=== PATIENT | male | born 1975 | race Caucasian/White ===

== ENCOUNTER 2016-09-24 16:43 | Emergency (ER) | payer BC, OTHER ==
[~2016-09-24 16:43] MED LIST: OMEP40CA2 PO; PARO-39 PO
[2016-09-24] MEDS ORDERED: MORPHINE 2 MG/ML 1ML SYRINGE As Ordered ONE (17:45)
[2016-09-24 18:03] LABS: BASO # 0.1 K/mm3 (0.0-0.2); BASO % 1.3 % (0.0-1.0); EOS # 0.3 K/mm3 (0.0-0.50); EOS % 3.7 % (0.0-3.0); LARGE UNSTAINED CELL # 0.2 K/mm3 (0.0-0.4); LARGE UNSTAINED CELL % 2.4 % (0.0-4.0); LYMPH # 2.4 K/mm3 (1.5-4.5); LYMPH % 32.3 % (24.0-44.0); MEAN CORPUSCULAR HEMOGLOBIN 29.8 pg (27.0-33.0); MEAN CORPUSCULAR VOLUME 87.7 fl (80.0-96.0); MONO # 0.4 K/mm3 (0.0-0.8); MONO % 5.5 % (0.0-5.0); NEUTROPHILS % 54.8 % (36.0-66.0); PLATELET COUNT, AUTOMATED 374 k/mm3 (150-450); RED CELL DISTRIBUTION WIDTH 12.8 % (11.5-14.5); WHITE BLOOD COUNT 7.3 K/mm3 (4.0-10.0)
--- NOTE | 2016-09-24 18:16 | REP ---
Clinical: Chest pain . Comparison: 01/14/2016 . Findings: The mediastinum and cardiac silhouette are stable and within normal limits for portable technique. The lung jean are clear without acute consolidation, effusion, or pneumothorax. Skeletal structures are intact. Impression: Normal portable chest x-ray Signed by Deniz Cobb MD 09/24/2016 06:07 P
[2016-09-24 18:35] LABS: ANION GAP 8 MEQ/L (8-16); BLOOD UREA NITROGEN 12 MG/DL (7-18); CALCIUM LEVEL 9.1 MG/DL (8.5-10.1); CARBON DIOXIDE LEVEL 28 MEQ/L (21-32); CHLORIDE LEVEL 105 MEQ/L (98-107); CREATININE FOR GFR 1.11 MG/DL (0.70-1.30); GLOMERULAR FILTRATION RATE > 60.0 (>60); GLUCOSE, FASTING 104 MG/DL (70-105); POTASSIUM SERUM 4.1 MEQ/L (3.5-5.1); SODIUM LEVEL 141 MEQ/L (136-145)
--- NOTE | 2016-09-24 22:36 | EDDOCDS ---
Physician Documentation [facility] Name: Ronan Hernandes Age: 41 yrs Sex: Male : 1975 Arrival Date: 09/24/2016 Time: 16:43 Bed 14 Private MD: Chris Disposition: 09/24/16 22:08 Discharged to Home/Self Care. Impression: Chest pain, unspecified. - Condition is Stable. - Discharge Instructions: Nonspecific Chest Pain. - Medication Reconciliation, Local Pharmacy Hours, Work Release Form - 1 day form. - Follow up: Chris; When: Call to arrange an appointment; Reason: Continuance of care. - Problem is new. - Symptoms have improved. Historical: - Allergies: Nubain; - Home Meds: 1. Paxil 20 mg Oral tab once daily 2. omeprazole 40 mg Oral cpDR once daily - PMHx: GERD; Hypertension; - PSHx: right shoulder surgery; - Social history: Smoking status: Patient states was never smoker of tobacco. No barriers to communication noted, The patient speaks fluent Maltese. - Family history: Not pertinent. - : The pt / caregiver states he / she is not on anticoagulants. Home medication list is obtained from the patient. - Exposure Risk Screening:: None identified. Vital Signs: 09/24 16:57 BP 138 / 76; Pulse 77; Resp 18; Pulse Ox 97% on R/A; Weight 92.99 kg / 205.01 lbs; mk4 Height 5 ft. 10 in. (177.80 cm); 17:02 BP 130 / 77 (auto/); ms18 17:03 Pulse 86 MON; Pulse Ox 97% ; ms18 17:07 Temp 97.1(O); mk4 17:17 BP 127 / 77 (auto/); ms18 17:18 Pulse 86 MON; Pulse Ox 96% ; ms18 17:32 BP 126 / 78 (auto/); ms18 17:33 Pulse 84 MON; Pulse Ox 97% ; ms18 17:47 BP 128 / 81 (auto/); ms18 17:48 Pulse 80 MON; Pulse Ox 98% ; ms18 18:02 BP 123 / 80 (auto/); ms18 18:03 Pulse 76 MON; Pulse Ox 97% ; ms18 18:16 Pulse 78 MON; Pulse Ox 96% ; ms18 18:17 BP 126 / 81 (auto/); ms18 18:32 BP 126 / 81 (auto/); ms18 18:32 Pulse 78 MON; Pulse Ox 97% ; ms18 18:47 BP 127 / 81 (auto/); ms18 18:48 Pulse 72 MON; Pulse Ox 98% ; ms18 19:02 BP 124 / 79 (auto/); ms18 19:03 Pulse 76 MON; Pulse Ox 97% ; ms18 19:17 BP 116 / 78 (auto/); ms18 19:18 Pulse 76 MON; Pulse Ox 96% ; ms18 19:32 BP 134 / 80 (auto/); ms18 19:32 Pulse 82 MON; Pulse Ox 96% ; ms18 19:46 Pulse 78 MON; Pulse Ox 96% ; ms18 19:47 BP 124 / 79 (auto/); ms18 20:02 BP 130 / 83 (auto/); ms18 20:02 Pulse 78 MON; Pulse Ox 96% ; ms18 20:17 Pulse 78 MON; Pulse Ox 97% ; ms18 20:17 BP 129 / 82 (auto/); ms18 20:31 Pulse 76 MON; Pulse Ox 96% ; ms18 20:32 BP 130 / 85 (auto/); ms18 20:46 Pulse 82 MON; Pulse Ox 95% ; ms18 20:47 BP 129 / 85 (auto/); ms18 20:47 Pulse 78 MON; Pulse Ox 96% ; ms18 21:01 Pulse 84 MON; Pulse Ox 98% ; ms18 21:02 BP 121 / 85 (auto/); ms18 21:16 Pulse 80 MON; Pulse Ox 97% ; ms18 21:17 BP 119 / 84 (auto/); ms18 21:32 BP 124 / 87 (auto/); ms18 21:32 Pulse 80 MON; Pulse Ox 96% ; ms18 21:45 Pulse 82 MON; Pulse Ox 96% ; ms18 21:47 BP 122 / 86 (auto/); ms18 22:02 BP 122 / 84 (auto/); ms18 22:02 Pulse 80 MON; Pulse Ox 94% ; ms18 22:17 BP 124 / 83 (auto/); ms18 22:17 Pulse 84 MON; Pulse Ox 96% ; ms18 22:18 Pulse 82 MON; Resp 18; Temp 98; Pulse Ox 96% ; Pain 0/10; ms18 16:57 Body Mass Index 29.41 (92.99 kg, 177.80 cm) mk4 MDM: 17:00 ECG WITH READING ER PHYS+CARDIAG ordered. EDMS 17:33 Aspirin Chewable Tablet 324 mg PO once ordered. fg 17:33 morphine 2 mg IVP once ordered. fg 17:33 Vessel Welder/Pulse Ox/q 30 min VS ordered. fg 17:33 IV Saline Lock ordered. fg 17:33 Rhythm Strip to chart ordered. fg 17:33 Undress patient appropriately for examination ordered. fg 17:34 ECG WITH READING ER PHYS+CARDIAG ordered. EDMS 17:35 B-Type Natiuretic Peptide Ordered. EDMS 17:35 Basic Metabolic Profile Ordered. EDMS 17:35 CBC with Diff Ordered. EDMS 17:35 Cardiac Injury Profile Ordered. EDMS 17:35 Troponin Ordered. EDMS 17:35 portable chest Ordered. EDMS 17:57 Financial registration complete. ks16 17:58 [facility] [place] was scanned into [email or web address] and attached to record. ks16 17:59 ECG WITH READING ER PHYS+CARDIAG ordered. EDMS 19:25 Repeat EKG (put time details section) ordered. fg 19:28 CARDIAC MARKER PANEL Ordered. EDMS 19:29 ECG WITH READING ER PHYS ordered. EDMS 19:31 Redraw CIP &Troponin (put time in details section) ordered. fg 19:38 Redraw CIP &Troponin (put time in details section) complete. ml3 19:41 Repeat EKG (put time details section) complete. ml3 Administered Medications: 17:54 Not Given (Pt states that he was given this at approx 1600 by his employer's [address]): Aspirin Chewable Tablet 324 mg PO once 17:55 Drug: morphine 2 mg [morphine 2 mg/mL intravenous cartridge (1 mL)] Route: IVP; Site: mb9 left antecubital; Signatures: Dispatcher [employer] EDMS Kyler Gonzalez, Cleaner Housekeeping Unit ml3 Chery Penn RN RN mk4 Wilda Leo RN RN ms18 Chayo Larkin MD MD fg Sorenson, Kimberly, Reg Reg ks16 Jeferson Gallegos RN mb9 The chart was reviewed and I authenticate all verbal orders and agree with the evaluation and treatment provided.Corrections: (The following items were deleted from the chart) 17:59 17:35 ECG WITH READING ER PHYS+CARDIAG ordered. EDMS EDMS 19: 19:26 CARDIAC INJURY PROFILE+LAB ordered. EDMS EDMS 19:26 TROPONIN+LAB ordered. EDMS EDMS Attachments: 17:58 [facility] Payment Agreement ks16 MTDD
--- NOTE | 2016-09-24 22:37 | EDDOCDS ---
Nurse's Notes [facility] Name: Ronan Hernandes Age: 41 yrs Sex: Male : 1975 Arrival Date: 09/24/2016 Time: 16:43 Bed 14 Private MD: Chris Diagnosis: Chest pain, unspecified Presentation: 09/24 16:52 Presenting complaint: Patient states: sudden onset of chest pain around 4 pm today mk4 ..has been spomewhat relieved by 3 nitros , pain now around 3/10 now , some tenderness left chest wall on palp , denies any recent illness. 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 by ems. Adult Sepsis Screening: The patient does not have new or worsening altered mentation. Patient's respiratory rate is less than 22. Systolic blood pressure is greater than 100. Patient has a qSOFA score of 0- Negative Sepsis Screen. Suicide/Homicide risk assessment- the patient denies having any suicidal and/or homicidal ideations and does not present with any other emotional, behavioral or mental health complaints. Status: Patient is not a customer service clerk or dependent. Transition of care: patient was not received from another setting of care. 16:52 Acuity: SCAR Level 3 mk4 16:52 Method Of Arrival: Ambulance mk4 Triage Assessment: 16:57 General: Appears in no apparent distress. Pain: Location: anterior aspect of left upper mk4 chest, mid-sternal area, left nipple and left breast Pain currently is 3 out of 10 on a pain scale. HIV screening NA for this visit Offered previously. Cardiovascular: Chest pain is described as Pain is 3 out of 10 on a pain scale. radiates Does not radiate. episodes are intermittent began 2 hours prior to arrival. Historical: - Allergies: Nubain; - Home Meds: 1. Paxil 20 mg Oral tab once daily 2. omeprazole 40 mg Oral cpDR once daily - PMHx: GERD; Hypertension; - PSHx: right shoulder surgery; - Social history: Smoking status: Patient states was never smoker of tobacco. No barriers to communication noted, The patient speaks fluent Colombian. - Family history: Not pertinent. - : The pt / caregiver states he / she is not on anticoagulants. Home medication list is obtained from the patient. - Exposure Risk Screening:: None identified. Screenin:03 Advance Directives: There is no living will. ms18 17:12 Screening information is obtained from the patient. Fall risk: No risks identified. mk4 Assistance ADL's: requires no assistance with activities of daily living. Abuse/DV Screen: The patient / caregiver reports he/she is: not in a situation that causes fear, pain or injury. Nutritional screening: No deficits noted. home support is adequate. Assessment: 17:07 General: Appears in no apparent distress, comfortable. Pain: Location: left breast and mk4 mid-sternal area Pain currently is 4 out of 10 on a pain scale. Cardiovascular: Rhythm is regular. 17:12 Neurological: Level of Consciousness is awake, alert, Oriented to person, place, time. mk4 Respiratory: No deficits noted. Airway is patent Respiratory effort is even, unlabored, Respiratory pattern is regular, Breath sounds are clear bilaterally. Derm: Skin is intact, Skin is dry, Skin is pink, warm & dry. 17:54 General: Appears in no apparent distress, comfortable, Behavior is appropriate for age, ms18 cooperative. Pain: Pain currently is 4 out of 10 on a pain scale. Neurological: No deficits noted. Cardiovascular: Rhythm is regular. Respiratory: Airway is patent Respiratory effort is even, unlabored. GI: Abdomen is non- distended. Derm: Skin is pink, warm & dry. 18:28 General: Pt resting on the stretcher at this time. Will continue to monitor pt. ms18 19:43 General: Appears in no apparent distress, comfortable, Behavior is appropriate for age, ms18 cooperative, pleasant. General: Pt informed that the doctor wants repeat lab work and an EKG at approx 2100. Pt verbalized understanding, lights dimmed, pt states that he is feeling better. Pain: Denies pain. Neurological: No deficits noted. Cardiovascular: Rhythm is regular. Respiratory: No deficits noted. Derm: Skin is pink, warm & dry. 20:34 General: Appears in no apparent distress, comfortable, Behavior is appropriate for age, ms18 cooperative, Will redraw pt's labs at 2100. Respiratory: No deficits noted. Derm: Skin is pink, warm & dry. 21:30 General: Pt in no acute distress. Will continue to monitor pt. ms18 22:31 General: Appears in no apparent distress, comfortable, Behavior is appropriate for age, ms18 cooperative, pleasant. Pain: Denies pain. Neurological: No deficits noted. Cardiovascular: Rhythm is sinus rhythm. Respiratory: No deficits noted. Derm: Skin is intact, Skin is pink, warm & dry. Vital Signs: 16:57 BP 138 / 76; Pulse 77; Resp 18; Pulse Ox 97% on R/A; Weight 92.99 kg; Height 5 ft. 10 mk4 in. (177.80 cm); 17:02 BP 130 / 77 (auto/); ms18 17:03 Pulse 86 MON; Pulse Ox 97% ; ms18 17:07 Temp 97.1(O); mk4 17:17 BP 127 / 77 (auto/); ms18 17:18 Pulse 86 MON; Pulse Ox 96% ; ms18 17:32 BP 126 / 78 (auto/); ms18 17:33 Pulse 84 MON; Pulse Ox 97% ; ms18 17:47 BP 128 / 81 (auto/); ms18 17:48 Pulse 80 MON; Pulse Ox 98% ; ms18 18:02 BP 123 / 80 (auto/); ms18 18:03 Pulse 76 MON; Pulse Ox 97% ; ms18 18:16 Pulse 78 MON; Pulse Ox 96% ; ms18 18:17 BP 126 / 81 (auto/); ms18 18:32 BP 126 / 81 (auto/); ms18 18:32 Pulse 78 MON; Pulse Ox 97% ; ms18 18:47 BP 127 / 81 (auto/); ms18 18:48 Pulse 72 MON; Pulse Ox 98% ; ms18 19:02 BP 124 / 79 (auto/); ms18 19:03 Pulse 76 MON; Pulse Ox 97% ; ms18 19:17 BP 116 / 78 (auto/); ms18 19:18 Pulse 76 MON; Pulse Ox 96% ; ms18 19:32 BP 134 / 80 (auto/); ms18 19:32 Pulse 82 MON; Pulse Ox 96% ; ms18 19:46 Pulse 78 MON; Pulse Ox 96% ; ms18 19:47 BP 124 / 79 (auto/); ms18 20:02 BP 130 / 83 (auto/); ms18 20:02 Pulse 78 MON; Pulse Ox 96% ; ms18 20:17 Pulse 78 MON; Pulse Ox 97% ; ms18 20:17 BP 129 / 82 (auto/); ms18 20:31 Pulse 76 MON; Pulse Ox 96% ; ms18 20:32 BP 130 / 85 (auto/); ms18 20:46 Pulse 82 MON; Pulse Ox 95% ; ms18 20:47 BP 129 / 85 (auto/); ms18 20:47 Pulse 78 MON; Pulse Ox 96% ; ms18 21:01 Pulse 84 MON; Pulse Ox 98% ; ms18 21:02 BP 121 / 85 (auto/); ms18 21:16 Pulse 80 MON; Pulse Ox 97% ; ms18 21:17 BP 119 / 84 (auto/); ms18 21:32 BP 124 / 87 (auto/); ms18 21:32 Pulse 80 MON; Pulse Ox 96% ; ms18 21:45 Pulse 82 MON; Pulse Ox 96% ; ms18 21:47 BP 122 / 86 (auto/); ms18 22:02 BP 122 / 84 (auto/); ms18 22:02 Pulse 80 MON; Pulse Ox 94% ; ms18 22:17 BP 124 / 83 (auto/); ms18 22:17 Pulse 84 MON; Pulse Ox 96% ; ms18 22:18 Pulse 82 MON; Resp 18; Temp 98; Pulse Ox 96% ; Pain 0/10; ms18 16:57 Body Mass Index 29.41 (92.99 kg, 177.80 cm) mk4 Vitals: 16:57 Log In Time N/A - ambulance arrival. mk4 ED Course: 16:44 Patient visited by Ambar Sierra Corridor Redevelopment Manager. lbd 16:44 Patient moved to Waiting lbd 16:45 Chris is Private Physician. lbd 16:45 Wilda Leo,RN is Primary Nurse. mk4 16:45 Patient moved to 14 mk4 16:55 Triage Initiated mk4 17:03 Patient has correct armband on for positive identification. Placed in gown. Bed in low ms18 position. Call light in reach. Side rails up X2. Property :Personal belongings accompany Pt. 17:03 Maintain field IV. Dressing intact. Good blood return noted. Site clean & dry. Gauge & ms18 site: 20g L AC. 17:08 EKG done. (by ED staff). Reviewed by Xiang Whipple MD. nb2 17:12 The patient / caregiver is instructed regarding the plan of care and ED course. Cardiac mk4 monitor on. Pulse ox on. NIBP on. 17:21 Chayo Larkin MD is Attending Physician. fg 17:22 Patient visited by Chery Penn, NIRANJAN. mk4 17:35 Patient visited by Chayo Larkin MD. fg 17:52 B-Type Natiuretic Peptide Sent. ms18 17:52 Basic Metabolic Profile Sent. ms18 17:52 CBC with Diff Sent. ms18 17:52 Cardiac Injury Profile Sent. ms18 17:52 Troponin Sent. ms18 17:58 [facility] [place] was scanned into [employer] and attached to record. ks16 17:59 Patient visited by Nilsa Caballero. nb2 18:28 Patient visited by Wilda Leo,NIRANJAN. ms18 18:30 portable chest Returned. EDMS 19:28 Patient visited by Srikanth Quintana PCA. kb5 19:43 Patient visited by Wilda Leo RN. ms18 20:30 Patient visited by Wilda Leo RN. ms18 21:07 Patient visited by Wilda Leo RN. ms18 21:07 CARDIAC MARKER PANEL Sent. ms18 21:18 EKG done. (by ED staff). Reviewed by Chayo Larkin MD. kb5 21:19 Patient visited by Srikanth Quintana PCA. kb5 22:08 Chris is Referral Physician. fg 22:31 Patient visited by Wilda Leo RN. ms18 22:33 Discontinued IV lock intact, bleeding controlled, pressure dressing applied, No ms18 redness/swelling at site. No procedures done that require assistance. Administered Medications: 17:54 Not Given (Pt states that he was given this at approx 1600 by his employer's [address]): Aspirin Chewable Tablet 324 mg PO once 17:55 Drug: morphine 2 mg [morphine 2 mg/mL intravenous cartridge (1 mL)] Route: IVP; Site: mb9 left antecubital; Order Results: Lab Order: B-Type Natiuretic Peptide; SPEC'M 09/24/16 17:50 Test: BRAIN NATRIURETIC PEPTIDE; Value: < 5.0; Range: <100; Units: PG/ML; Status: F Lab Order: Basic Metabolic Profile; SPEC'M 09/24/16 17:50 Test: GLUCOSE, FASTING; Value: 104; Range: 70-105; Units: MG/DL; Status: F Test: BLOOD UREA NITROGEN; Value: 12; Range: 7-18; Units: MG/DL; Status: F Test: CREATININE FOR GFR; Value: 1.11; Range: 0.70-1.30; Units: MG/DL; Status: F Test: GLOMERULAR FILTRATION RATE; Value: > 60.0; Range: >60; Status: F Test: SODIUM LEVEL; Value: 141; Range: 136-145; Units: MEQ/L; Status: F Test: POTASSIUM SERUM; Value: 4.1; Range: 3.5-5.1; Units: MEQ/L; Status: F Test: CHLORIDE LEVEL; Value: 105; Range: 98-107; Units: MEQ/L; Status: F Test: CARBON DIOXIDE LEVEL; Value: 28; Range: 21-32; Units: MEQ/L; Status: F Test: ANION GAP; Value: 8; Range: 8-16; Units: MEQ/L; Status: F Test: CALCIUM LEVEL; Value: 9.1; Range: 8.5-10.1; Units: MG/DL; Status: F Test Note: ; Units are mL/min/1.73 m2 Chronic Kidney Disease Staging per NKF: Stage I & II GFR >=60 Normal to Mildly Decreased Stage III GFR 30-59 Moderately Decreased Stage IV GFR 15-29 Severely Decreased Stage V GFR <15 Very Little GFR Left ESRD GFR <15 on STOREROOM ATTENDANT Lab Order: CBC with Diff; SPEC'M 09/24/16 17:50 Test: WHITE BLOOD COUNT; Value: 7.3; Range: 4.0-10.0; Units: K/mm3; Status: F Test: RED BLOOD COUNT; Value: 4.80; Range: 4.30-6.10; Units: M/mm3; Status: F Test: HEMOGLOBIN; Value: 14.3; Range: 14.0-18.0; Units: g/dl; Status: F Test: HEMATOCRIT; Value: 42.0; Range: 42.0-52.0; Units: %; Status: F Test: MEAN CORPUSCULAR VOLUME; Value: 87.7; Range: 80.0-96.0; Units: fl; Status: F Test: MEAN CORPUSCULAR HEMOGLOBIN; Value: 29.8; Range: 27.0-33.0; Units: pg; Status: F Test: MEAN CORPUSCULAR HGB CONC; Value: 34.0; Range: 32.0-36.5; Units: g/dl; Status: F Test: RED CELL DISTRIBUTION WIDTH; Value: 12.8; Range: 11.5-14.5; Units: %; Status: F Test: PLATELET COUNT, AUTOMATED; Value: 374; Range: 150-450; Units: k/mm3; Status: F Test: NEUTROPHILS %; Value: 54.8; Range: 36.0-66.0; Units: %; Status: F Test: LYMPH %; Value: 32.3; Range: 24.0-44.0; Units: %; Status: F Test: MONO %; Value: 5.5; Range: 0.0-5.0; Abnormal: Above high normal; Units: %; Status: F Test: EOS %; Value: 3.7; Range: 0.0-3.0; Abnormal: Above high normal; Units: %; Status: F Test: BASO %; Value: 1.3; Range: 0.0-1.0; Abnormal: Above high normal; Units: %; Status: F Test: LARGE UNSTAINED CELL %; Value: 2.4; Range: 0.0-4.0; Units: %; Status: F Test: NEUTROPHILS #; Value: 4.0; Range: 1.8-7.7; Units: K/mm3; Status: F Test: LYMPH #; Value: 2.4; Range: 1.5-4.5; Units: K/mm3; Status: F Test: MONO #; Value: 0.4; Range: 0.0-0.8; Units: K/mm3; Status: F Test: EOS #; Value: 0.3; Range: 0.0-0.50; Units: K/mm3; Status: F Test: BASO #; Value: 0.1; Range: 0.0-0.2; Units: K/mm3; Status: F Test: LARGE UNSTAINED CELL #; Value: 0.2; Range: 0.0-0.4; Units: K/mm3; Status: F Lab Order: Cardiac Injury Profile; SPEC'M 09/24/16 17:50 Test: CPK CREATINE PHOSPHOKINASE; Value: 135; Range: 39-308; Units: U/L; Status: F Test: CK-MB VALUE MASS; Value: 1.8; Range: 0.0-3.6; Units: NG/ML; Status: F Test: MB/CK RELATIVE INDEX; Value: 1.33; Range: < OR =4; Status: F Test Note: ; DIAGNOSIS CRITERIA MMB ng/ml Relative Index (RI) NON-AMI < or = 5 N/A JOHN ZONE > 5 < or = 4 AMI > 5 > 4 Lab Order: Troponin; SPEC'M 09/24/16 17:50 Test: TROPONIN I; Value: < 0.02; Range: < 0.10; Units: NG/ML; Status: F Test Note: ; Troponin I Reference Interval for [facility] LOCI: 99th Percentile= 0.00-0.045 ng/ml Risk Stratification: <= 0.10 ng/ml Decreased Risk for Adverse Clinical Events. 0.10-1.50 ng/ml Increased Risk for Adverse Clinical Events. Evaluation of additional criterion and/or repeat testing in 2-6 hours is suggested to rule out myocardial damage. >= 1.50 ng/ml Indicative of Myocardial Injury. Lab Order: CARDIAC MARKER PANEL; SPEC'M 09/24/16 21:00 Test: CPK CREATINE PHOSPHOKINASE; Value: 114; Range: 39-308; Units: U/L; Status: F Test: CK-MB VALUE MASS; Value: 1.5; Range: 0.0-3.6; Units: NG/ML; Status: F Test: MB/CK RELATIVE INDEX; Value: 1.31; Range: < OR =4; Status: F Test: TROPONIN I; Value: < 0.02; Range: < 0.10; Units: NG/ML; Status: F Test Note: ; DIAGNOSIS CRITERIA MMB ng/ml Relative Index (RI) NON-AMI < or = 5 N/A JOHN ZONE > 5 < or = 4 AMI > 5 > 4 Radiology Order: portable chest Test: portable chest REASON FOR EXAMINATION: Chest Pain; Clinical: Chest pain .; ; Comparison: 01/14/2016 .; ; Findings:; The mediastinum and cardiac silhouette are stable and within normal limits for; portable technique. The lung jean are clear without acute consolidation,; effusion, or pneumothorax. Skeletal structures are intact.; ; Impression:; Normal portable chest x-ray; ; ; Signed by; Deniz Cobb MD 09/24/2016 06:07 P; Outcome: 22:08 Discharge ordered by Provider. fg 22:33 Discharge Assessment: Patient awake, alert and oriented x 3. No cognitive and/or ms18 functional deficits noted. Patient verbalized understanding of disposition instructions. patient administered narcotics - yes. Pt provided with safe discharge. The following High Risk Discharge criteria are identified: None. Discharged to home ambulatory, with significant other. Condition: good Condition: stable Condition: improved. Discharge instructions given to patient, Instructed on discharge instructions, follow up and referral plans. no driving heavy equipment, Demonstrated understanding of instructions, Pt was receptive of discharge instructions/ teaching. Work note provided to patient. No special radiology studies were completed. 22:34 Patient left the ED. ms18 Signatures: Dispatcher [employer] EDMS Ambar Sierra, Corridor Redevelopment Manager Unit lbd Srikanth Quintana, DISASTER RECOVERY COORDINATOR DISASTER RECOVERY COORDINATOR kb5 Chery Penn, RN RN [email or web address] Wilda Leo RN RN ms18 Jeferson Gallegos,NIRANJAN RN [id number] Chayo Larkin MD MD fg Sorenson, Kimberly, Reg Reg [id number] Nilsa Caballero2 TRINA
--- NOTE | 2016-09-25 08:47 | ECGEPIP ---
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
--- NOTE | 2016-09-25 08:49 | ECGEPIP ---
Stationary ECG Study [facility] - ED Test Date: 2016-09-24 Pat Name: JORGE CULVER Department: Room: - Gender: M Concrete Spreader: mignon : 1975 Requested By: MARIA G Velez Order Number: [id number] Reading MD: Xiang Whipple Measurements Intervals [place] Rate: 74 P: 27 MD: 184 QRS: 2 QRSD: 100 T: 9 QT: 385 QTc: 429 Interpretive Statements SINUS RHYTHM NSTTW ABNORMALITIES, EARLY REPOLARIZATION SIMILAR TO 09/24/16 Electronically Signed On 09-25-2016 8:49:04 EST by Xiang Whipple
--- NOTE | 2016-09-25 08:54 | ECGEPIP ---
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
--- NOTE | 2016-09-26 23:35 | EDDOCDS ---
Physician Documentation [facility] Name: Ronan Hernandes Age: 41 yrs Sex: Male : 1975 Arrival Date: 09/24/2016 Time: 16:43 Bed 14 Private MD: Chris Disposition: 09/24/16 22:08 Discharged to Home/Self Care. Impression: Chest pain, unspecified. - Condition is Stable. - Discharge Instructions: Nonspecific Chest Pain. - Medication Reconciliation, Local Pharmacy Hours, Work Release Form - 1 day form. - Follow up: Chris; When: Call to arrange an appointment; Reason: Continuance of care. - Problem is new. - Symptoms have improved. Historical: - Allergies: Nubain; - Home Meds: 1. Paxil 20 mg Oral tab once daily 2. omeprazole 40 mg Oral cpDR once daily - PMHx: GERD; Hypertension; - PSHx: right shoulder surgery; - Social history: Smoking status: Patient states was never smoker of tobacco. No barriers to communication noted, The patient speaks fluent Setswana. - Family history: Not pertinent. - : The pt / caregiver states he / she is not on anticoagulants. Home medication list is obtained from the patient. - Exposure Risk Screening:: None identified. Vital Signs: 09/24 16:57 BP 138 / 76; Pulse 77; Resp 18; Pulse Ox 97% on R/A; Weight 92.99 kg / 205.01 lbs; mk4 Height 5 ft. 10 in. (177.80 cm); 17:02 BP 130 / 77 (auto/); ms18 17:03 Pulse 86 MON; Pulse Ox 97% ; ms18 17:07 Temp 97.1(O); mk4 17:17 BP 127 / 77 (auto/); ms18 17:18 Pulse 86 MON; Pulse Ox 96% ; ms18 17:32 BP 126 / 78 (auto/); ms18 17:33 Pulse 84 MON; Pulse Ox 97% ; ms18 17:47 BP 128 / 81 (auto/); ms18 17:48 Pulse 80 MON; Pulse Ox 98% ; ms18 18:02 BP 123 / 80 (auto/); ms18 18:03 Pulse 76 MON; Pulse Ox 97% ; ms18 18:16 Pulse 78 MON; Pulse Ox 96% ; ms18 18:17 BP 126 / 81 (auto/); ms18 18:32 BP 126 / 81 (auto/); ms18 18:32 Pulse 78 MON; Pulse Ox 97% ; ms18 18:47 BP 127 / 81 (auto/); ms18 18:48 Pulse 72 MON; Pulse Ox 98% ; ms18 19:02 BP 124 / 79 (auto/); ms18 19:03 Pulse 76 MON; Pulse Ox 97% ; ms18 19:17 BP 116 / 78 (auto/); ms18 19:18 Pulse 76 MON; Pulse Ox 96% ; ms18 19:32 BP 134 / 80 (auto/); ms18 19:32 Pulse 82 MON; Pulse Ox 96% ; ms18 19:46 Pulse 78 MON; Pulse Ox 96% ; ms18 19:47 BP 124 / 79 (auto/); ms18 20:02 BP 130 / 83 (auto/); ms18 20:02 Pulse 78 MON; Pulse Ox 96% ; ms18 20:17 Pulse 78 MON; Pulse Ox 97% ; ms18 20:17 BP 129 / 82 (auto/); ms18 20:31 Pulse 76 MON; Pulse Ox 96% ; ms18 20:32 BP 130 / 85 (auto/); ms18 20:46 Pulse 82 MON; Pulse Ox 95% ; ms18 20:47 BP 129 / 85 (auto/); ms18 20:47 Pulse 78 MON; Pulse Ox 96% ; ms18 21:01 Pulse 84 MON; Pulse Ox 98% ; ms18 21:02 BP 121 / 85 (auto/); ms18 21:16 Pulse 80 MON; Pulse Ox 97% ; ms18 21:17 BP 119 / 84 (auto/); ms18 21:32 BP 124 / 87 (auto/); ms18 21:32 Pulse 80 MON; Pulse Ox 96% ; ms18 21:45 Pulse 82 MON; Pulse Ox 96% ; ms18 21:47 BP 122 / 86 (auto/); ms18 22:02 BP 122 / 84 (auto/); ms18 22:02 Pulse 80 MON; Pulse Ox 94% ; ms18 22:17 BP 124 / 83 (auto/); ms18 22:17 Pulse 84 MON; Pulse Ox 96% ; ms18 22:18 Pulse 82 MON; Resp 18; Temp 98; Pulse Ox 96% ; Pain 0/10; ms18 16:57 Body Mass Index 29.41 (92.99 kg, 177.80 cm) mk4 MDM: 17:00 ECG WITH READING ER PHYS+CARDIAG ordered. EDMS 17:33 Aspirin Chewable Tablet 324 mg PO once ordered. fg 17:33 morphine 2 mg IVP once ordered. fg 17:33 Wallpaper Installer/Pulse Ox/q 30 min VS ordered. fg 17:33 IV Saline Lock ordered. fg 17:33 Rhythm Strip to chart ordered. fg 17:33 Undress patient appropriately for examination ordered. fg 17:34 ECG WITH READING ER PHYS+CARDIAG ordered. EDMS 17:35 B-Type Natiuretic Peptide Ordered. EDMS 17:35 Basic Metabolic Profile Ordered. EDMS 17:35 CBC with Diff Ordered. EDMS 17:35 Cardiac Injury Profile Ordered. EDMS 17:35 Troponin Ordered. EDMS 17:35 portable chest Ordered. EDMS 17:57 Financial registration complete. [email or web address] 17:58 [facility] Payment Agreement was scanned into [employer] and attached to record. [email or web address] 17:59 ECG WITH READING ER PHYS+CARDIAG ordered. EDMS 19:25 Repeat EKG (put time details section) ordered. fg 19:28 CARDIAC MARKER PANEL Ordered. EDMS 19:29 ECG WITH READING ER PHYS ordered. EDMS 19:31 Redraw CIP &Troponin (put time in details section) ordered. fg 19:38 Redraw CIP &Troponin (put time in details section) complete. ml3 19:41 Repeat EKG (put time details section) complete. ml3 09/25 14:15 T-Sheet-- Draft Copy was scanned into [employer] and attached to record. gb 14:16 ECG/EKG was scanned into [employer] and attached to record. gb 14:16 Rhythm Strip was scanned into [employer] and attached to record. gb 14:17 PCR was scanned into [employer] and attached to record. gb Administered Medications: 09/24 17:54 Not Given (Pt states that he was given this at approx 1600 by his employer[employer] [address]): Aspirin Chewable Tablet 324 mg PO once 17:55 Drug: morphine 2 mg [morphine 2 mg/mL intravenous cartridge (1 mL)] Route: IVP; Site: mb9 left antecubital; Signatures: Dispatcher [employer] EDMS Humera Jansen, Reg Reg gb Kyler Gonzalez, Artillery Officer Unit ml3 Chery Penn, RN RN mk4 Wilda Leo,RN RN ms18 Chayo Larkin MD MD Kimberly Brown, Reg Reg ks16 Jeferson Gallegos RN mb9 The chart was reviewed and I authenticate all verbal orders and agree with the evaluation and treatment provided.Corrections: (The following items were deleted from the chart) 17:59 17:35 ECG WITH READING ER PHYS+CARDIAG ordered. EDMS EDMS 19:29 19:26 CARDIAC INJURY PROFILE+LAB ordered. EDMS EDMS 19:29 19:26 TROPONIN+LAB ordered. EDMS EDMS Attachments: 17:58 [facility] Payment Agreement [email or web address] 09/25 14:15 T-Sheet-- Draft Copy gb 14:16 ECG/EKG gb Chart Complete MTDD
--- NOTE | 2016-09-26 23:35 | EDDOCDS ---
Physician Documentation [facility] Name: Ronan Hernandes Age: 41 yrs Sex: Male : 1975 Arrival Date: 09/24/2016 Time: 16:43 Bed 14 Private MD: Chris Disposition: 09/24/16 22:08 Discharged to Home/Self Care. Impression: Chest pain, unspecified. - Condition is Stable. - Discharge Instructions: Nonspecific Chest Pain. - Medication Reconciliation, Local Pharmacy Hours, Work Release Form - 1 day form. - Follow up: Chris; When: Call to arrange an appointment; Reason: Continuance of care. - Problem is new. - Symptoms have improved. Historical: - Allergies: Nubain; - Home Meds: 1. Paxil 20 mg Oral tab once daily 2. omeprazole 40 mg Oral cpDR once daily - PMHx: GERD; Hypertension; - PSHx: right shoulder surgery; - Social history: Smoking status: Patient states was never smoker of tobacco. No barriers to communication noted, The patient speaks fluent Amharic. - Family history: Not pertinent. - : The pt / caregiver states he / she is not on anticoagulants. Home medication list is obtained from the patient. - Exposure Risk Screening:: None identified. Vital Signs: 09/24 16:57 BP 138 / 76; Pulse 77; Resp 18; Pulse Ox 97% on R/A; Weight 92.99 kg / 205.01 lbs; mk4 Height 5 ft. 10 in. (177.80 cm); 17:02 BP 130 / 77 (auto/); ms18 17:03 Pulse 86 MON; Pulse Ox 97% ; ms18 17:07 Temp 97.1(O); mk4 17:17 BP 127 / 77 (auto/); ms18 17:18 Pulse 86 MON; Pulse Ox 96% ; ms18 17:32 BP 126 / 78 (auto/); ms18 17:33 Pulse 84 MON; Pulse Ox 97% ; ms18 17:47 BP 128 / 81 (auto/); ms18 17:48 Pulse 80 MON; Pulse Ox 98% ; ms18 18:02 BP 123 / 80 (auto/); ms18 18:03 Pulse 76 MON; Pulse Ox 97% ; ms18 18:16 Pulse 78 MON; Pulse Ox 96% ; ms18 18:17 BP 126 / 81 (auto/); ms18 18:32 BP 126 / 81 (auto/); ms18 18:32 Pulse 78 MON; Pulse Ox 97% ; ms18 18:47 BP 127 / 81 (auto/); ms18 18:48 Pulse 72 MON; Pulse Ox 98% ; ms18 19:02 BP 124 / 79 (auto/); ms18 19:03 Pulse 76 MON; Pulse Ox 97% ; ms18 19:17 BP 116 / 78 (auto/); ms18 19:18 Pulse 76 MON; Pulse Ox 96% ; ms18 19:32 BP 134 / 80 (auto/); ms18 19:32 Pulse 82 MON; Pulse Ox 96% ; ms18 19:46 Pulse 78 MON; Pulse Ox 96% ; ms18 19:47 BP 124 / 79 (auto/); ms18 20:02 BP 130 / 83 (auto/); ms18 20:02 Pulse 78 MON; Pulse Ox 96% ; ms18 20:17 Pulse 78 MON; Pulse Ox 97% ; ms18 20:17 BP 129 / 82 (auto/); ms18 20:31 Pulse 76 MON; Pulse Ox 96% ; ms18 20:32 BP 130 / 85 (auto/); ms18 20:46 Pulse 82 MON; Pulse Ox 95% ; ms18 20:47 BP 129 / 85 (auto/); ms18 20:47 Pulse 78 MON; Pulse Ox 96% ; ms18 21:01 Pulse 84 MON; Pulse Ox 98% ; ms18 21:02 BP 121 / 85 (auto/); ms18 21:16 Pulse 80 MON; Pulse Ox 97% ; ms18 21:17 BP 119 / 84 (auto/); ms18 21:32 BP 124 / 87 (auto/); ms18 21:32 Pulse 80 MON; Pulse Ox 96% ; ms18 21:45 Pulse 82 MON; Pulse Ox 96% ; ms18 21:47 BP 122 / 86 (auto/); ms18 22:02 BP 122 / 84 (auto/); ms18 22:02 Pulse 80 MON; Pulse Ox 94% ; ms18 22:17 BP 124 / 83 (auto/); ms18 22:17 Pulse 84 MON; Pulse Ox 96% ; ms18 22:18 Pulse 82 MON; Resp 18; Temp 98; Pulse Ox 96% ; Pain 0/10; ms18 16:57 Body Mass Index 29.41 (92.99 kg, 177.80 cm) mk4 MDM: 17:00 ECG WITH READING ER PHYS+CARDIAG ordered. EDMS 17:33 Aspirin Chewable Tablet 324 mg PO once ordered. fg 17:33 morphine 2 mg IVP once ordered. fg 17:33 Parts Representative/Pulse Ox/q 30 min VS ordered. fg 17:33 IV Saline Lock ordered. fg 17:33 Rhythm Strip to chart ordered. fg 17:33 Undress patient appropriately for examination ordered. fg 17:34 ECG WITH READING ER PHYS+CARDIAG ordered. EDMS 17:35 B-Type Natiuretic Peptide Ordered. EDMS 17:35 Basic Metabolic Profile Ordered. EDMS 17:35 CBC with Diff Ordered. EDMS 17:35 Cardiac Injury Profile Ordered. EDMS 17:35 Troponin Ordered. EDMS 17:35 portable chest Ordered. EDMS 17:57 Financial registration complete. [email or web address] 17:58 [facility] [place] Agreement was scanned into [employer] and attached to record. [email or web address] 17:59 ECG WITH READING ER PHYS+CARDIAG ordered. EDMS 19:25 Repeat EKG (put time details section) ordered. fg 19:28 CARDIAC MARKER PANEL Ordered. EDMS 19:29 ECG WITH READING ER PHYS ordered. EDMS 19:31 Redraw CIP &Troponin (put time in details section) ordered. fg 19:38 Redraw CIP &Troponin (put time in details section) complete. ml3 19:41 Repeat EKG (put time details section) complete. ml3 09/25 14:15 T-Sheet-- Draft Copy was scanned into [employer] and attached to record. gb 14:16 ECG/EKG was scanned into [employer] and attached to record. gb 14:16 Rhythm Strip was scanned into [employer] and attached to record. gb 14:17 PCR was scanned into [employer] and attached to record. gb Administered Medications: 09/24 17:54 Not Given (Pt states that he was given this at approx 1600 by his employer's [address]): Aspirin Chewable Tablet 324 mg PO once 17:55 Drug: morphine 2 mg [morphine 2 mg/mL intravenous cartridge (1 mL)] Route: IVP; Site: mb9 left antecubital; Signatures: Dispatcher [employer] EDMS Humera Jansen, Reg Reg gb Kyler Gonzaelz, Animal Trapper Unit ml3 Chery Penn, RN RN mk4 Wilda Leo,RN RN ms18 Chayo Larkin MD MD Kimberly Brown, Reg Reg ks16 Jeferson Gallegos RN mb9 The chart was reviewed and I authenticate all verbal orders and agree with the evaluation and treatment provided.Corrections: (The following items were deleted from the chart) 17:59 17:35 ECG WITH READING ER PHYS+CARDIAG ordered. EDMS EDMS 19:29 19:26 CARDIAC INJURY PROFILE+LAB ordered. EDMS EDMS 19:29 19:26 TROPONIN+LAB ordered. EDMS EDMS Attachments: 17:58 [facility] [place] Agreement [email or web address] 09/25 14:15 T-Sheet-- Draft Copy gb 14:16 ECG/EKG gb Chart Complete MTDD
--- NOTE | 2016-09-26 23:35 | EDDOCDS ---
[facility] Name: Ronan Culver Age: 41 yrs Sex: Male : 1975 Arrival Date: 09/24/2016 Time: 16:43 Bed 14 Private MD: Chris Diagnosis: Chest pain, unspecified Presentation: 09/24 16:52 Presenting complaint: Patient states: sudden onset of chest pain around 4 pm today mk4 ..has been spomewhat relieved by 3 nitros , pain now around 3/10 now , some tenderness left chest wall on palp , denies any recent illness. 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 Adult Sepsis Screening: The patient does not have new or worsening altered mentation. Patient's respiratory rate is less than 22. Systolic blood pressure is greater than 100. Patient has a qSOFA score of 0- Negative Sepsis Screen. Suicide/Homicide risk assessment- the patient denies having any suicidal and/or homicidal ideations and does not present with any other emotional, behavioral or mental health complaints. Status: Patient is not a member services representative or dependent. Transition of care: patient was not received from another setting of care. 16:52 Acuity: SCAR Level 3 mk4 16:52 Method Of Arrival: Ambulance mk4 Triage Assessment: 16:57 General: Appears in no apparent distress. Pain: Location: anterior aspect of left upper mk4 chest, mid-sternal area, left nipple and left breast Pain currently is 3 out of 10 on a pain scale. HIV screening NA for this visit Offered previously. Cardiovascular: Chest pain is described as Pain is 3 out of 10 on a pain scale. radiates Does not radiate. episodes are intermittent began 2 hours prior to arrival. Historical: - Allergies: Nubain; - Home Meds: 1. Paxil 20 mg Oral tab once daily 2. omeprazole 40 mg Oral cpDR once daily - PMHx: GERD; Hypertension; - PSHx: right shoulder surgery; - Social history: Smoking status: Patient states was never smoker of tobacco. No barriers to communication noted, The patient speaks fluent Senegalese. - Family history: Not pertinent. - : The pt / caregiver states he / she is not on anticoagulants. Home medication list is obtained from the patient. - Exposure Risk Screening:: None identified. Screenin:03 Advance Directives: There is no living will. ms18 17:12 Screening information is obtained from the patient. Fall risk: No risks identified. mk4 Assistance ADL's: requires no assistance with activities of daily living. Abuse/DV Screen: The patient / caregiver reports he/she is: not in a situation that causes fear, pain or injury. Nutritional screening: No deficits noted. home support is adequate. Assessment: 17:07 General: Appears in no apparent distress, comfortable. Pain: Location: left breast and mk4 mid-sternal area Pain currently is 4 out of 10 on a pain scale. Cardiovascular: Rhythm is regular. 17:12 Neurological: Level of Consciousness is awake, alert, Oriented to person, place, time. mk4 Respiratory: No deficits noted. Airway is patent Respiratory effort is even, unlabored, Respiratory pattern is regular, Breath sounds are clear bilaterally. Derm: Skin is intact, Skin is dry, Skin is pink, warm & dry. 17:54 General: Appears in no apparent distress, comfortable, Behavior is appropriate for age, ms18 cooperative. Pain: Pain currently is 4 out of 10 on a pain scale. Neurological: No deficits noted. Cardiovascular: Rhythm is regular. Respiratory: Airway is patent Respiratory effort is even, unlabored. GI: Abdomen is non- distended. Derm: Skin is pink, warm & dry. 18:28 General: Pt resting on the stretcher at this time. Will continue to monitor pt. ms18 19:43 General: Appears in no apparent distress, comfortable, Behavior is appropriate for age, ms18 cooperative, pleasant. General: Pt informed that the doctor wants repeat lab work and an EKG at approx 2100. Pt verbalized understanding, lights dimmed, pt states that he is feeling better. Pain: Denies pain. Neurological: No deficits noted. Cardiovascular: Rhythm is regular. Respiratory: No deficits noted. Derm: Skin is pink, warm & dry. 20:34 General: Appears in no apparent distress, comfortable, Behavior is appropriate for age, ms18 cooperative, Will redraw pt's labs at 2100. Respiratory: No deficits noted. Derm: Skin is pink, warm & dry. 21:30 General: Pt in no acute distress. Will continue to monitor pt. ms18 22:31 General: Appears in no apparent distress, comfortable, Behavior is appropriate for age, ms18 cooperative, pleasant. Pain: Denies pain. Neurological: No deficits noted. Cardiovascular: Rhythm is sinus rhythm. Respiratory: No deficits noted. Derm: Skin is intact, Skin is pink, warm & dry. Vital Signs: 16:57 BP 138 / 76; Pulse 77; Resp 18; Pulse Ox 97% on R/A; Weight 92.99 kg; Height 5 ft. 10 mk4 in. (177.80 cm); 17:02 BP 130 / 77 (auto/); ms18 17:03 Pulse 86 MON; Pulse Ox 97% ; ms18 17:07 Temp 97.1(O); mk4 17:17 BP 127 / 77 (auto/); ms18 17:18 Pulse 86 MON; Pulse Ox 96% ; ms18 17:32 BP 126 / 78 (auto/); ms18 17:33 Pulse 84 MON; Pulse Ox 97% ; ms18 17:47 BP 128 / 81 (auto/); ms18 17:48 Pulse 80 MON; Pulse Ox 98% ; ms18 18:02 BP 123 / 80 (auto/); ms18 18:03 Pulse 76 MON; Pulse Ox 97% ; ms18 18:16 Pulse 78 MON; Pulse Ox 96% ; ms18 18:17 BP 126 / 81 (auto/); ms18 18:32 BP 126 / 81 (auto/); ms18 18:32 Pulse 78 MON; Pulse Ox 97% ; ms18 18:47 BP 127 / 81 (auto/); ms18 18:48 Pulse 72 MON; Pulse Ox 98% ; ms18 19:02 BP 124 / 79 (auto/); ms18 19:03 Pulse 76 MON; Pulse Ox 97% ; ms18 19:17 BP 116 / 78 (auto/); ms18 19:18 Pulse 76 MON; Pulse Ox 96% ; ms18 19:32 BP 134 / 80 (auto/); ms18 19:32 Pulse 82 MON; Pulse Ox 96% ; ms18 19:46 Pulse 78 MON; Pulse Ox 96% ; ms18 19:47 BP 124 / 79 (auto/); ms18 20:02 BP 130 / 83 (auto/); ms18 20:02 Pulse 78 MON; Pulse Ox 96% ; ms18 20:17 Pulse 78 MON; Pulse Ox 97% ; ms18 20:17 BP 129 / 82 (auto/); ms18 20:31 Pulse 76 MON; Pulse Ox 96% ; ms18 20:32 BP 130 / 85 (auto/); ms18 20:46 Pulse 82 MON; Pulse Ox 95% ; ms18 20:47 BP 129 / 85 (auto/); ms18 20:47 Pulse 78 MON; Pulse Ox 96% ; ms18 21:01 Pulse 84 MON; Pulse Ox 98% ; ms18 21:02 BP 121 / 85 (auto/); ms18 21:16 Pulse 80 MON; Pulse Ox 97% ; ms18 21:17 BP 119 / 84 (auto/); ms18 21:32 BP 124 / 87 (auto/); ms18 21:32 Pulse 80 MON; Pulse Ox 96% ; ms18 21:45 Pulse 82 MON; Pulse Ox 96% ; ms18 21:47 BP 122 / 86 (auto/); ms18 22:02 BP 122 / 84 (auto/); ms18 22:02 Pulse 80 MON; Pulse Ox 94% ; ms18 22:17 BP 124 / 83 (auto/); ms18 22:17 Pulse 84 MON; Pulse Ox 96% ; ms18 22:18 Pulse 82 MON; Resp 18; Temp 98; Pulse Ox 96% ; Pain 0/10; ms18 16:57 Body Mass Index 29.41 (92.99 kg, 177.80 cm) mk4 Vitals: 16:57 Log In Time N/A - ambulance arrival. mk4 ED Course: 16:44 Patient visited by Ambar Sierra Equity Director. lbd 16:44 Patient moved to Waiting lbd 16:45 Chris is Private Physician. lbd 16:45 Wilda Leo,RN is Primary Nurse. mk4 16:45 Patient moved to 14 mk4 16:55 Triage Initiated mk4 17:03 Patient has correct armband on for positive identification. Placed in gown. Bed in low ms18 position. Call light in reach. Side rails up X2. Property :Personal belongings accompany Pt. 17:03 Maintain field IV. Dressing intact. Good blood return noted. Site clean & dry. Gauge & ms18 site: 20g L AC. 17:08 EKG done. (by ED staff). Reviewed by Xiang Whipple MD. nb2 17:12 The patient / caregiver is instructed regarding the plan of care and ED course. Cardiac mk4 monitor on. Pulse ox on. NIBP on. 17:21 Chayo Larkin MD is Attending Physician. fg 17:22 Patient visited by Chery Penn, NIRANJAN. mk4 17:35 Patient visited by Chayo Larkin MD. fg 17:52 B-Type Natiuretic Peptide Sent. ms18 17:52 Basic Metabolic Profile Sent. ms18 17:52 CBC with Diff Sent. ms18 17:52 Cardiac Injury Profile Sent. ms18 17:52 Troponin Sent. ms18 17:58 [facility] Payment Agreement was scanned into [employer] and attached to record. ks16 17:59 Patient visited by Nilsa Caballero. nb2 18:28 Patient visited by Wilda Leo,NIRANJAN. ms18 18:30 portable chest Returned. EDMS 19:28 Patient visited by Srikanth Quintana PCA. kb5 19:43 Patient visited by Wilda Leo RN. ms18 20:30 Patient visited by Wilda Leo RN. ms18 21:07 Patient visited by Wilda Leo RN. ms18 21:07 CARDIAC MARKER PANEL Sent. ms18 21:18 EKG done. (by ED staff). Reviewed by Chayo Larkin MD. kb5 21:19 Patient visited by Srikanth Quintana PCA. kb5 22:08 Chris is Referral Physician. fg 22:31 Patient visited by Wilda Leo RN. ms18 22:33 Discontinued IV lock intact, bleeding controlled, pressure dressing applied, No ms18 redness/swelling at site. No procedures done that require assistance. 09/25 08:52 EKG-ADULT Returned. EDMS 08:52 EKG-ADULT Returned. EDMS 09:29 EKG-ADULT Returned. EDMS 14:15 T-Sheet-- Draft Copy was scanned into [employer] and attached to record. gb 14:16 ECG/EKG was scanned into [employer] and attached to record. gb 14:16 Rhythm Strip was scanned into [employer] and attached to record. gb 14:17 PCR was scanned into [employer] and attached to record. gb Administered Medications: 09/24 17:54 Not Given (Pt states that he was given this at approx 1600 by his employer's [address]): Aspirin Chewable Tablet 324 mg PO once 17:55 Drug: morphine 2 mg [morphine 2 mg/mL intravenous cartridge (1 mL)] Route: IVP; Site: mb9 left antecubital; Attachments: 14:16 Rhythm Strip gb Order Results: Lab Order: B-Type Natiuretic Peptide; SPEC'M 09/24/16 17:50 Test: BRAIN NATRIURETIC PEPTIDE; Value: < 5.0; Range: <100; Units: PG/ML; Status: F Lab Order: Basic Metabolic Profile; SPEC'M 09/24/16 17:50 Test: GLUCOSE, FASTING; Value: 104; Range: 70-105; Units: MG/DL; Status: F Test: BLOOD UREA NITROGEN; Value: 12; Range: 7-18; Units: MG/DL; Status: F Test: CREATININE FOR GFR; Value: 1.11; Range: 0.70-1.30; Units: MG/DL; Status: F Test: GLOMERULAR FILTRATION RATE; Value: > 60.0; Range: >60; Status: F Test: SODIUM LEVEL; Value: 141; Range: 136-145; Units: MEQ/L; Status: F Test: POTASSIUM SERUM; Value: 4.1; Range: 3.5-5.1; Units: MEQ/L; Status: F Test: CHLORIDE LEVEL; Value: 105; Range: 98-107; Units: MEQ/L; Status: F Test: CARBON DIOXIDE LEVEL; Value: 28; Range: 21-32; Units: MEQ/L; Status: F Test: ANION GAP; Value: 8; Range: 8-16; Units: MEQ/L; Status: F Test: CALCIUM LEVEL; Value: 9.1; Range: 8.5-10.1; Units: MG/DL; Status: F Test Note: ; Units are mL/min/1.73 m2 Chronic Kidney Disease Staging per NKF: Stage I & II GFR >=60 Normal to Mildly Decreased Stage III GFR 30-59 Moderately Decreased Stage IV GFR 15-29 Severely Decreased Stage V GFR <15 Very Little GFR Left ESRD GFR <15 on DIRECTOR SECURITY RISK MANAGEMENT Lab Order: CBC with Diff; SPEC'M 09/24/16 17:50 Test: WHITE BLOOD COUNT; Value: 7.3; Range: 4.0-10.0; Units: K/mm3; Status: F Test: RED BLOOD COUNT; Value: 4.80; Range: 4.30-6.10; Units: M/mm3; Status: F Test: HEMOGLOBIN; Value: 14.3; Range: 14.0-18.0; Units: g/dl; Status: F Test: HEMATOCRIT; Value: 42.0; Range: 42.0-52.0; Units: %; Status: F Test: MEAN CORPUSCULAR VOLUME; Value: 87.7; Range: 80.0-96.0; Units: fl; Status: F Test: MEAN CORPUSCULAR HEMOGLOBIN; Value: 29.8; Range: 27.0-33.0; Units: pg; Status: F Test: MEAN CORPUSCULAR HGB CONC; Value: 34.0; Range: 32.0-36.5; Units: g/dl; Status: F Test: RED CELL DISTRIBUTION WIDTH; Value: 12.8; Range: 11.5-14.5; Units: %; Status: F Test: PLATELET COUNT, AUTOMATED; Value: 374; Range: 150-450; Units: k/mm3; Status: F Test: NEUTROPHILS %; Value: 54.8; Range: 36.0-66.0; Units: %; Status: F Test: LYMPH %; Value: 32.3; Range: 24.0-44.0; Units: %; Status: F Test: MONO %; Value: 5.5; Range: 0.0-5.0; Abnormal: Above high normal; Units: %; Status: F Test: EOS %; Value: 3.7; Range: 0.0-3.0; Abnormal: Above high normal; Units: %; Status: F Test: BASO %; Value: 1.3; Range: 0.0-1.0; Abnormal: Above high normal; Units: %; Status: F Test: LARGE UNSTAINED CELL %; Value: 2.4; Range: 0.0-4.0; Units: %; Status: F Test: NEUTROPHILS #; Value: 4.0; Range: 1.8-7.7; Units: K/mm3; Status: F Test: LYMPH #; Value: 2.4; Range: 1.5-4.5; Units: K/mm3; Status: F Test: MONO #; Value: 0.4; Range: 0.0-0.8; Units: K/mm3; Status: F Test: EOS #; Value: 0.3; Range: 0.0-0.50; Units: K/mm3; Status: F Test: BASO #; Value: 0.1; Range: 0.0-0.2; Units: K/mm3; Status: F Test: LARGE UNSTAINED CELL #; Value: 0.2; Range: 0.0-0.4; Units: K/mm3; Status: F Lab Order: Cardiac Injury Profile; [facility] 09/24/16 17:50 Test: CPK CREATINE PHOSPHOKINASE; Value: 135; Range: 39-308; Units: U/L; Status: F Test: CK-MB VALUE MASS; Value: 1.8; Range: 0.0-3.6; Units: NG/ML; Status: F Test: MB/CK RELATIVE INDEX; Value: 1.33; Range: < OR =4; Status: F Test Note: ; DIAGNOSIS CRITERIA MMB ng/ml Relative Index (RI) NON-AMI < or = 5 N/A JOHN ZONE > 5 < or = 4 AMI > 5 > 4 Lab Order: Troponin; [facility] 09/24/16 17:50 Test: TROPONIN I; Value: < 0.02; Range: < 0.10; Units: NG/ML; Status: F Test Note: ; Troponin I Reference Interval for [employer] LOCI: 99th Percentile= 0.00-0.045 ng/ml Risk Stratification: <= 0.10 ng/ml Decreased Risk for Adverse Clinical Events. 0.10-1.50 ng/ml Increased Risk for Adverse Clinical Events. Evaluation of additional criterion and/or repeat testing in 2-6 hours is suggested to rule out myocardial damage. >= 1.50 ng/ml Indicative of Myocardial Injury. Lab Order: CARDIAC MARKER PANEL; [facility] 09/24/16 21:00 Test: CPK CREATINE PHOSPHOKINASE; Value: 114; Range: 39-308; Units: U/L; Status: F Test: CK-MB VALUE MASS; Value: 1.5; Range: 0.0-3.6; Units: NG/ML; Status: F Test: MB/CK RELATIVE INDEX; Value: 1.31; Range: < OR =4; Status: F Test: TROPONIN I; Value: < 0.02; Range: < 0.10; Units: NG/ML; Status: F Test Note: ; DIAGNOSIS CRITERIA MMB ng/ml Relative Index (RI) NON-AMI < or = 5 N/A JOHN ZONE > 5 < or = 4 AMI > 5 > 4 Radiology Order: EKG-ADULT Test: EKG-ADULT REASON FOR EXAMINATION: Chest Pain; Stationary ECG Study; 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; : 1975 Requested By: CHAYO Velez; Order Number: [id number] Reading : Xiang Whipple; Measurements; Intervals [place]; Rate: 74 P: 27; NM: 184 QRS: 2; QRSD: 100 T: 9; QT: 385; QTc: 429; Interpretive Statements; SINUS RHYTHM; NSTTW ABNORMALITIES, EARLY REPOLARIZATION; SIMILAR TO 09/24/16; Electronically Signed On 09-25-2016 8:49:04 EST by Xiang Whipple; Radiology Order: portable chest Test: portable chest REASON FOR EXAMINATION: Chest Pain; Clinical: Chest pain .; ; Comparison: 01/14/2016 .; ; Findings:; The mediastinum and cardiac silhouette are stable and within normal limits for; portable technique. The lung jean are clear without acute consolidation,; effusion, or pneumothorax. Skeletal structures are intact.; ; Impression:; Normal portable chest x-ray; ; ; Signed by; Deniz Cobb MD 09/24/2016 06:07 P; Radiology Order: EKG-ADULT Test: EKG-ADULT REASON FOR EXAMINATION: repeat now. 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 fg 22:33 Discharge Assessment: Patient awake, alert and oriented x 3. No cognitive and/or ms18 functional deficits noted. Patient verbalized understanding of disposition instructions. patient administered narcotics - yes. Pt provided with safe discharge. The following High Risk Discharge criteria are identified: None. Discharged to home ambulatory, with significant other. Condition: good Condition: stable Condition: improved. Discharge instructions given to patient, Instructed on discharge instructions, follow up and referral plans. no driving heavy equipment, Demonstrated understanding of instructions, Pt was receptive of discharge instructions/ teaching. Work note provided to patient. No special radiology studies were completed. 22:34 Patient left the ED. ms18 Signatures: Dispatcher [employer] EDMS Ambar Sierra, Equity Director Unit lbd Humera Jansen, Reg Reg gb Lilian, Srikanth, IT QUALITY ASSURANCE ANALYST IT QUALITY ASSURANCE ANALYST kb5 Chery Penn, RN RN mk4 Wilda Leo,NIRANJAN RN ms18 Jeferson Gallegos,RN RN mb9 Chayo Larkin MD MD fg Sorenson, Kimberly, Reg Reg ks16 Nilsa Caballero2 Chart Complete MTDD
== END 2016-09-24 22:34 | disposition home or self-care (01) ==
LOC: M ED 16:43
DX: R07.9 Chest pain, unspecified (principal); I10 Essential (primary) hypertension; K21.9 Gastro-esophageal reflux disease without esophagitis; F32.9 Major depressive disorder, single episode, unspecified; F41.9 Anxiety disorder, unspecified; Z88.5 Allergy status to narcotic agent; Z79.899 Other long term (current) drug therapy; Z82.49 Family history of ischemic heart disease and other diseases of the circulatory system

== ENCOUNTER → 2016-09-25 | Outpatient (REF) | payer BC, OTHER | LOC: M LAB REF 14:52 | PROVIDERS: ATTEND Nurse Practitioner Family | DX: R07.9 Chest pain, unspecified (principal) ==

== ENCOUNTER → 2017-05-12 | Outpatient (CLI) | payer BC, OTHER ==
[~2017-05-12] MED LIST changes: -PARO-39 PO; +PARO20TA4 PO
--- NOTE | 2017-05-12 10:12 | REP ---
Cervical spine seven views: Vertebral body heights, interspacing alignment are normal C1-C7. Kilos obscured by the shoulders. There is no listhesis on flexion or extension. The facets are normally aligned. Prevertebral soft tissues are normal. The odontoid view is unremarkable. There is no bony foraminal encroachment. Impression: Negative cervical spine C1-C7. I recommend the patient return for additional views demonstrating T1. If this is not possible consider CT. Signed by Rodney Patrick MD 05/12/2017 10:03 A
--- NOTE | 2017-05-12 10:15 | REP ---
Left shoulder four views : There is no fracture or dislocation. Mineralization and joint spaces are normal. There are no calcifications or foreign bodies. Impression: Negative left shoulder . Signed by Rodney Patrick MD 05/12/2017 10:06 A
== END ==
LOC: M WUC 09:03
PROVIDERS: ATTEND Physician Assistant
DX: M25.512 Pain in left shoulder (principal)

== ENCOUNTER 2018-05-02 09:36 | Emergency (ER) | payer OTHER, BC | END 2018-05-02 10:11 | disposition home or self-care (01) | LOC: M ED 09:36 | DX: M77.02 Medial epicondylitis, left elbow (principal); I10 Essential (primary) hypertension; K21.9 Gastro-esophageal reflux disease without esophagitis; I25.2 Old myocardial infarction; Z79.899 Other long term (current) drug therapy; Z88.8 Allergy status to other drugs, medicaments and biological substances | CPT/HCPCS: 99282 ==

== ENCOUNTER → 2019-12-17 | Outpatient (CLI) | payer OTHER, BC ==
[~2019-12-17] MED LIST changes: +ALEV220C2 PO; +AMLO2.5T3; +DICL75TA PO; -OMEP40CA2 PO; +OMEP40CA97 PO; +SERT50TA29; +VITA50005; +[UNRECOGNIZED DRUG - CODE] XX
[2019-12-17 17:12] LABS: BASO # 0.1 10^3/uL (0.0-0.2); BASO % 1.3 % (0.0-1.0); EOS # 0.4 10^3/uL (0.0-0.5); EOS % 4.6 % (0.0-3.0); HEMATOCRIT 45.7 % (42.0-52.0); HEMOGLOBIN 15.1 g/dl (13.5-17.5); LYMPH # 2.1 10^3/uL (1.5-5.0); MEAN CORPUSCULAR HEMOGLOBIN 29.8 pg (27.0-33.0); MEAN CORPUSCULAR VOLUME 90.1 fl (80.0-96.0); MONO # 0.6 10^3/uL (0.0-0.8); MONO % 7.7 % (0.0-5.0); NEUTROPHILS # 4.5 10^3/uL (1.5-8.5); PLATELET COUNT, AUTOMATED 421 10^3/uL (150-450); RED BLOOD COUNT 5.07 10^6/uL (4.30-6.10); WHITE BLOOD COUNT 7.6 10^3/uL (4.0-10.0)
[2019-12-17 17:32] LABS: ALBUMIN 4.1 GM/DL (3.2-5.2); ALT/SGPT 52 U/L (12-78); BILIRUBIN,TOTAL 0.9 MG/DL (0.2-1.0); BLOOD UREA NITROGEN 12 MG/DL (7-18); CALCIUM LEVEL 9.4 MG/DL (8.5-10.1); CARBON DIOXIDE LEVEL 26 MEQ/L (21-32); CHLORIDE LEVEL 107 MEQ/L (98-107); CREATININE FOR GFR 1.18 MG/DL (0.70-1.30); GLOMERULAR FILTRATION RATE > 60.0 (>60); GLUCOSE, FASTING 117 MG/DL (70-100); POTASSIUM SERUM 4.7 MEQ/L (3.5-5.1); SODIUM LEVEL 142 MEQ/L (136-145); TOTAL PROTEIN 7.5 GM/DL (6.4-8.2)
--- NOTE | 2019-12-18 08:01 | REP ---
KUB ABDOMEN AND PELVIS: KUB films of abdomen and pelvis are performed. Bowel gas pattern is normal with no evidence of bowel obstruction. Multiple phleboliths are seen in the left pelvis. No abnormal calcifications are seen over the renal shadows. The visualized osseous structures are unremarkable. IMPRESSION: Unremarkable KUB. Electronically Signed by Rodney Oseguera MD 12/20/2019 12:05 P
== END ==
LOC: M WUC 12:35
PROVIDERS: ATTEND Physician Assistant
DX: R10.84 Generalized abdominal pain (principal); M54.5 Low back pain

== ENCOUNTER → 2019-12-31 | Outpatient (REF) | payer OTHER ==
[2019-12-31 17:11] LABS: AMORPHOUS SEDIMENT MODERATE (NEGATIVE); APPEARANCE, URINE TURBID (CLEAR); BACTERIA, URINE AUTO NEGATIVE (NEGATIVE); BILIRUBIN, URINE AUTO NEGATIVE (NEGATIVE); BLOOD, URINE BLOOD NEGATIVE (NEGATIVE); COLOR, URINE YELLOW (YELLOW); GLUCOSE, URINE (UA) AUTO NEGATIVE (NEGATIVE); KETONE, URINE AUTO TRACE mg/dL (NEGATIVE); LEUKOCYTE ESTERASE, URINE AUTO NEGATIVE (NEGATIVE); MUCUS, URINE SMALL (NEGATIVE); NITRITE, URINE AUTO NEGATIVE (NEGATIVE); PROTEIN, URINE AUTO NEGATIVE (NEGATIVE); RBC, URINE AUTO 2 /HPF (0-3); SPECIFIC GRAVITY URINE AUTO 1.026 (1.002-1.035); SQUAMOUS EPITHELIAL CELL UR AU 0 /HPF (0-6); WBC, URINE AUTO 0 /HPF (0-3)
== END ==
LOC: M SMT 16:42
PROVIDERS: ATTEND Nurse Practitioner Family
DX: R10.9 Unspecified abdominal pain (principal)

== ENCOUNTER → 2020-01-06 | Outpatient (CLI) | payer BC, OTHER ==
[~2020-01-06] MED LIST changes: +oxyCODONE 5MG TAB As Ordered ONE
--- NOTE | 2020-01-06 20:45 | REP ---
Clinical: Flank pain. Technique real time garland scale ultrasound examination using curved array transducer. Findings: The right kidney is normal in contour, size, echogenicity, and reniform shape without hydronephrosis, nephrolithiasis, cystic or renal mass lesion. Right kidney measures 10.7 x 5.5 x 5.7 cm. The left kidney demonstrates upper pole lobulation versus mass measuring 2.5 cm maximal diameter. No hydronephrosis, nephrolithiasis or cystic lesion identified. Left kidney measures 10.4 x 4.9 x 5.6 cm. Bladder is incompletely distended but grossly normal in appearance. Impression: 1. 2.5 cm contour abnormality to of the left kidney may represent normal lobulation versus mass. Consider pre and postcontrast CT of the abdomen for further evaluation. Electronically Signed by Deniz Cobb MD 01/06/2020 08:36 P
== END ==
LOC: M RAD 09:27
PROVIDERS: ATTEND Physician Assistant
DX: R10.9 Unspecified abdominal pain (principal); M54.5 Low back pain

== ENCOUNTER → 2020-01-25 | Outpatient (CLI) | payer BC, OTHER ==
[~2020-01-25] MED LIST changes: +ISOVUE-370 76% 100ML VIAL As Ordered ONE; -oxyCODONE 5MG TAB As Ordered ONE
--- NOTE | 2020-01-25 09:29 | REP ---
Clinical: Right flank pain. Technique: Axial precontrast, contrast enhanced, and delayed images of the abdomen and pelvis using 100 ml Isovue 370 intravenous contrast material with coronal and sagittal re-formations. 3-D urogram images created at the workstation. Comparison: 07/18/2013. Findings: The kidneys are essentially normal and without perinephric stranding, hydroureteronephrosis or nephroureterolithiasis. No renal cystic or mass lesions are identified. Delayed images demonstrate normal appearance to the collecting system including bilateral ureters and bladder. Liver, spleen, pancreas, and bilateral adrenal glands are normal. Gallbladder demonstrates cholelithiasis without acute cholecystitis. The enteric system is without obstruction or acute inflammatory process. Normal terminal ileum and appendix are identified in the right lower quadrant. Pelvis demonstrates normal bladder and age appropriate prostate/seminal vesicles. A few incidental phleboliths are noted in the pelvis. No ascites. No free air. No adenopathy. Abdominal aorta and vasculature without aneurysm or dissection. Surrounding musculoskeletal structures are intact. Lung bases are clear. Visualized heart and pericardium normal. Impression: 1. Normal urinary tract system. 2. No acute abdominopelvic pathology appreciated. 3. Subtle cholelithiasis. Electronically Signed by Deniz Cobb MD 01/25/2020 09:21 A
== END ==
LOC: M RAD 08:11
PROVIDERS: ATTEND Nurse Practitioner Family
DX: R10.9 Unspecified abdominal pain (principal)
CPT/HCPCS: 74178; Q9967

== ENCOUNTER → 2020-08-21 | Outpatient (CLI) | payer BC, OTHER ==
[~2020-08-21] MED LIST changes: -ISOVUE-370 76% 100ML VIAL As Ordered ONE
== END ==
LOC: M LABSMTC 11:39
PROVIDERS: ATTEND Family Medicine
DX: Z20.822 Contact with and (suspected) exposure to COVID-19 (principal)

== ENCOUNTER → 2021-04-19 | Outpatient (CLI) | payer BC, OTHER ==
[~2021-04-19] MED LIST changes: +OMEP40CA4 PO; -OMEP40CA97 PO
--- NOTE | 2021-04-19 15:19 | REP ---
INDICATION: LOW BACK PAIN. COMPARISON: None. TECHNIQUE: Five views lumbosacral spine. FINDINGS: There is no compression fracture or malalignment. There is normal lumbar lordosis. There is mild spurring of L4 and L5 vertebral bodies. There is minimal narrowing of the L4-5 disc space and mild narrowing of the L5-S1 disc space. There is mild sclerosis and spurring at the facet joints of L5-S1. The posterior elements are intact. IMPRESSION: Mild degenerative changes. <Electronically signed by Rodney Oseguera > 04/19/21 [id number]
== END ==
LOC: M WUC 14:34
PROVIDERS: ATTEND Physician Assistant Medical
DX: M25.78 Osteophyte, vertebrae (principal); M51.36 Other intervertebral disc degeneration, lumbar region

== ENCOUNTER → 2021-06-20 | Outpatient (CLI) | payer BC, OTHER ==
[2021-06-20 10:45] LABS: BLOOD UREA NITROGEN 14 MG/DL (7-18); CREATININE FOR GFR 1.07 MG/DL (0.70-1.30); GLOMERULAR FILTRATION RATE > 60.0 (>60)
== END ==
LOC: M LAB 09:59
PROVIDERS: ATTEND Orthopaedic Surgery Orthopaedic Surgery of the Spine
DX: Z01.818 Encounter for other preprocedural examination (principal)

== ENCOUNTER 2021-07-16 09:18 | Emergency (ER) | payer BC, OTHER ==
[~2021-07-16] VITALS: Ht 177.8 cm; Wt 95.5 kg
--- OUTSIDE RECORDS SUMMARY | 2021-07-16 09:25 | CCD | Continuity of Care Document ---
Author Author Ronan MURPHY PA Organization Unknown Address [address] [address] Phone [phone] Problems Description No Information Available Social History Type Date Description Comments Sex Unknown ETOH Use Rarely consumes alcohol Tobacco Use Start: Unknown Patient has never smoked Allergies, Adverse Reactions, Alerts Active Allergies Criticality Reaction | Severity Comments Date Nubain Unable to assess criticality hallucinatio ns/esophageal swelling 03/18/2016 Medications Active Medications SIG Qnty Indications Ordering Provide r Date Ibuprofen 800mg Tablets 1 three times a day with food as needed pain 60tabs ALEX Manuel 04/19/2021 Prednisone 10mg Tablets 4 by mouth daily for 3 days then 3 daily for 3 days then 2 daily for 3 days then 1 daily for 3 days and stop. 31tabs ALEX Arroyo JR 021 Vitamin D (Ergocalciferol) 1.25mg (36344 Ut) Capsules take 1 capsule by mouth every week 4caps E55.9 ALEX Arroyo JR 08/31/2019 Sertraline HCL 50mg Tablets take 1 tablet by mouth twice a day 90tabs F41.9 ALEX Arroyo JR Omeprazole 40mg Capsules DR Take 1 Capsule By Mouth Every Day 90caps K21.9 ALEX Arroyo JR 03/2016 Amlodipine Besylate 2.5mg Tablets take 1 tablet by mouth every day 30tabs ALEX Arroyo JR Medications Administered in Office Medication SIG Qnty Indications Ordering Provider Date Depo-Medrol Injection Injection SARITA Acevedo 05/08/2018 Immunizations Description No Information Available Vital Signs Date Vital Result Comment 04/19/2021 2:02pm BP Systolic 136 mmHg BP Diastolic 92 mmHg Heart Rate 115 /min Height 70 inches 5'10" Weight 211.00 lb O2 % BldC Oximetry 97 % BMI (Body Mass Index) 30.3 kg/m2 02/28/2021 7:59am BP Systolic 140 mmHg BP Diastolic 90 mmHg BP Systolic Recheck 128 mmHg BP Diastolic Recheck 84 mmHg Heart Rate 102 /min Height 70 inches 5'10" Weight 209.00 lb O2 % BldC Oximetry 98 % RM Air BMI (Body Mass Index) 30.0 kg/m2 Results Test Acquired Date Facility Test Result H/L Range Note Complete Blood Count 02/28/2021 [facility] Harbor Pilot: [place] [address] [phone] WBC 6.2 x10*3/UL 4.1 - 10.9 RBC 5.14 x10*6/UL 4.20 - 6.30 Hemoglobin 14.9 g/dL 12.0 - 18.0 Hematocrit 44.2 % 37.0 - 51.0 MCV 86.0 fL 80.0 - 97.0 MCH 29.1 pg 26.0 - 32.0 MCHC 33.9 g/dL 31.0 - 38.0 RDW 12.9 % 11.6 - 13.7 PLT 414 x10*3/UL 140 - 440 MPV 7.4 FL Low 7.8 - 11.0 Lymph % 26.9 % 10.0 - 58.5 Mid % 6.1 % 1.7 - 9.3 Neut % 67.0 % 37.0 - 92.0 Lymph # 1.6 x10*3/UL 0.6 - 4.1 Mid # 0.5 x10*3/UL 0.1 - 0.6 Neut # 4.1 x10*3/UL 2.0 - 7.8 Comprehensive Chem Profile 02/28/2021 [facility] Harbor Pilot: [place] [address] [phone] Glucose 94 mg/dL 74 - 99 1 BUN 14 mg/dL 7 - 18 Creatinine 1.2 mg/dL 0.6 - 1.3 Sodium 144 mEq/L 136 - 145 Potassium 4.8 mEq/L 3.5 - 5.1 Chloride 106 mEq/L 98 - 107 Carbon Dioxide 27 mEq/L 21 - 32 Calcium 10.0 mg/dL 8.5 - 10.1 Alk. Phosphatase 76 mg/dL 46 - 116 Total Bilirubin 0.6 mg/dL 0.2 - 1.0 Ast (Sgot) 24 U/L 15 - 37 Alt (SGPT) 52 U/L 12 - 78 Albumin 3.9 g/dL 3.4 - 5.0 Total Protein 7.4 g/dL 6.4 - 8.2 A/G Ratio 1.11 CALC 1.00 - 1.90 GFR >= 60 mL/min >60 GFR >= 60 mL/min >60 2 Lipid Profile 02/28/2021 [facility] Harbor Pilot: [place] [address] [phone] Cholesterol 238 mg/dL High 131 - 200 Triglycerides 169 mg/dL High 30 - 150 HDL Cholesterol 50 mg/dL 35 - 60 LDL (Calculated) 154 CALC 50 - 159 Laboratory test finding 02/28/2021 [facility] Harbor Pilot: [place] [address] [phone] Vitamin D 25-Hydroxy 38.1 ng/ml 24.0 - 80.0 3 1 100-125 mg/dL PRE-DIABET ES/FASTING >126 mg/dL DIABETES/FASTING 2 CHRONIC KIDNEY DISEASE STAGI NG PER NKF STAGE I & II GFR >= 60 NORMAL TO MILDLY DECREASED STAGE III GFR 30-59 MODERATELY DECREASED STAGE IV GFR 15-29 SEVERELY DECREASED STAGE V GFR <15 VERY LITTLE GFR LEFT ESRD GFR <15 ON IMPLEMENTATION TECHNICIAN 3 This test was performed [facility] [employer] Vitamin D immunoassay kit. Values obtained with different assay methods should not be used interchangeably. Procedures Date Code Description Status 02/28/2021 88952 Est Prevent Med (40-64Yrs) Compl eted 02/28/2021 68550 EKG/Interpretation & Report Comp leted 07/15/2016 [id number] Colonoscopy Completed Medical Devices Description No Information Available Encounters Type Date Location Provider Dx Diagnosis Office Visit 02/28/2021 8:00a [facility] Wiliam Murphy JR, PA Z00.00 Encntr for general adult med ical exam w/o abnormal findings I10 Essential (primary) hyperten sunday F41.9 Anxiety disorder, unspecifie d K21.9 Gastro-esophageal reflux dis ease without esophagitis E55.9 Vitamin D deficiency, unspec ified E78.00 Pure hypercholesterolemia, u nspecified R07.89 Other chest pain Z13.89 Encounter for screening for other disorder Assessments Date Code Description Provider 02/28/2021 Z00.00 Encounter for genera l adult medical examination without abnormal findings ALEX Arroyo JR 02/28/2021 I10 Essential (primary) hypertension ALEX Arroyo JR 02/28/2021 F41.9 Anxiety disorder, unspecified Ro ALEX Shelton JR 02/28/2021 K21.9 Gastro-esophageal reflux disease without esophagitis ALEX Arroyo JR 02/28/2021 E55.9 Vitamin D deficiency, unspecifie d ALEX Arroyo JR 02/28/2021 E78.00 Pure hypercholesterolemia, unspe cified ALEX Arroyo JR 02/28/2021 R07.89 Other chest pain ALEX Cardoso JR 02/28/2021 Z13.89 Encounter for screening for othe r disorder ALEX Arroyo JR Plan of Treatment Future Appointment(s):* 05/31/2021 8:00 am - ALEX Arroyo JR at [facility] 04/19/2021 - ALEX Arroyo JR* All * New Medication:* Ibuprofen 800 mg - 1 three times a day with food as needed pain * Prednisone 10 mg - 4 by mouth daily for 3 days then 3 daily for 3 days then 2 daily for 3 days then 1 daily for 3 days and stop. Functional Status Description No Information Available Mental Status Description No Information Available Referrals Description No Information Available
--- OUTSIDE RECORDS SUMMARY | 2021-07-16 09:25 | CCD | Continuity of Care Document ---
Author Author Ronan MURPHY Organization Unknown Address [address] [place] [address] Phone [phone] Care Team Providers Care Radio Repairer Name Role Phone Raymond Murphy AUTM [phone] Problems Description No Information Available Social History Type Date Description Comments Sex Unknown ETOH Use Rarely consumes alcohol Tobacco Use Start: Unknown Patient has never smoked Allergies and adverse reactions Active Allergies Criticality Reaction | Severity Comments Date Nubain Unable to assess criticality hallucinatio ns/esophageal swelling 03/18/2016 Medications Active Medications SIG Qnty Indications Ordering Provide r Date Ibuprofen 800mg Tablets 1 three times a day with food as needed pain 60tabs ALEX Manuel 04/19/2021 Vitamin D (Ergocalciferol) 1.25mg (26944 Ut) Capsules take 1 capsule by mouth [...] mouth every day 30tabs ALEX Arroyo JR History Medications Prednisone 10mg Tablets 4 by mouth daily for 3 days then 3 daily for 3 days then 2 daily for 3 days then 1 daily for 3 days and stop. 31tabs ALEX Arroyo JR 021 - 05/31/2021 Medications Administered in Office Medication SIG Qnty Indications Ordering Provider Date Depo-Medrol Injection Injection SARITA Acevedo 05/08/2018 Immunizations CPT Code Status Date Vaccine Lot # [id number] Refused 05/31/2021 Influenza Vaccin e Quadrivalent Preser/Antibiotic Free Im Use Vital Signs Date Vital Result Comment 05/31/2021 7:55am BP Systolic 126 mmHg BP Diastolic 88 mmHg Heart Rate 88 /min Height 70 inches 5'10" Weight 212.00 lb BMI (Body Mass Index) 30.4 kg/m2 04/19/2021 2:02pm BP Systolic 136 mmHg BP Diastolic 92 mmHg Heart Rate 115 /min Height 70 inches 5'10" Weight 211.00 lb O2 % BldC Oximetry 97 % BMI (Body Mass Index) 30.3 kg/m2 Results Test Acquired Date Facility Test Result H/L Range Note Complete Blood Count 02/28/2021 [facility] berger Set Designer: [place] [address] [phone] WBC 6.2 x10*3/UL 4.1 - 10.9 RBC [...] 2.0 - 7.8 Comprehensive Chem Profile 02/28/2021 [facility] Set Designer: [place] [address] [phone] Glucose 94 mg/dL 74 - 99 1 [...] 60 mL/min >60 2 Lipid Profile 02/28/2021 [facility] Set Designer: [place] [address] [phone] Cholesterol 238 mg/dL High 131 - 200 Triglycerides 169 mg/dL High 30 - 150 HDL Cholesterol 50 mg/dL 35 - 60 LDL (Calculated) 154 CALC 50 - 159 Laboratory test finding 02/28/2021 [facility] Set Designer: [place] [address] [phone] Vitamin D 25-Hydroxy 38.1 ng/ml 24.0 - 80.0 3 1 100-125 mg/dL PRE-DIABET ES/FASTING >126 mg/dL DIABETES/FASTING 2 CHRONIC KIDNEY DISEASE STAGI NG PER NKF STAGE I & II GFR >= 60 NORMAL TO MILDLY DECREASED STAGE III GFR 30-59 MODERATELY DECREASED STAGE IV GFR 15-29 SEVERELY DECREASED STAGE V GFR <15 VERY LITTLE GFR LEFT ESRD GFR <15 ON PROCESS TREATER 3 This test was performed [employer] Vitamin D immunoassay kit. Values obtained with different assay methods should not be used interchangeably. Procedures Date Code Description Status 04/19/2021 17792 Office/Outpatient Established Lo w MDM 20-29 Min Completed 02/28/2021 14489 Est Prevent Med (40-64Yrs) Compl eted 02/28/2021 92899 EKG/Interpretation & Report Comp leted 07/15/2016 [id number] Colonoscopy Completed Medical Devices Description No Information Available Encounters Type Date Location Provider Dx Diagnosis Office Visit 04/19/2021 2:20p [facility] ALEX Brooks JR M54.5 Low back pain Office Visit 02/28/2021 8:00a [facility] Frausto JR Z00.00 Encntr for general adult med ical exam w/o abnormal findings I10 Essential (primary) hyperten sunday F41.9 Anxiety disorder, unspecifie d K21.9 Gastro-esophageal reflux dis ease without esophagitis E55.9 Vitamin D deficiency, unspec ified E78.00 Pure hypercholesterolemia, u nspecified R07.89 Other chest pain Z13.89 Encounter for screening for other disorder Assessments Date Code Description Provider 04/19/2021 M54.5 Low back pain ALEX Rodriguez JR 02/28/2021 Z00.00 Encounter for genera l adult [...] Arroyo JR Plan of Treatment Future Appointment(s):* 11/29/2021 8:00 am - ALEX Arroyo JR at [facility] Functional Status Description No Information Available Mental Status Description No Information Available Referrals Refer to Reason for Referral Status Appt Date [facility] CONSULT FOR LOW BACK PAIN Creat ed [address] [place] [address] [phone]
--- OUTSIDE RECORDS SUMMARY | 2021-07-16 09:25 | CCD | Continuity of Care Document ---
Author Author Ronan MURPHY Organization Unknown Address [address] [address] Phone [phone] Care Team Providers Care Bandage Winding Machine Operator Name Role Phone Raymond Murphy AUTM [phone] Problems Description No Information Available Social History [...] ALEX Manuel 04/19/2021 Vitamin D (Ergocalciferol) 1.25mg (68760 Ut) Capsules take 1 capsule by mouth [...] CPT Code Status Date Vaccine Lot # [id number] Refused 05/31/2021 Influenza Vaccin e Quadrivalent Preser/Antibiotic [...] H/L Range Note Complete Blood Count 02/28/2021 [facility] Surface Water Technician: [place] [address] [phone] WBC 6.2 x10*3/UL 4.1 - 10.9 RBC [...] 2.0 - 7.8 Comprehensive Chem Profile 02/28/2021 [facility] Surface Water Technician: [place] [address] [phone] Glucose 94 mg/dL 74 - 99 1 [...] 60 mL/min >60 2 Lipid Profile 02/28/2021 [facility] Surface Water Technician: [place] [address] [phone] Cholesterol 238 mg/dL High 131 - 200 Triglycerides 169 mg/dL High 30 - 150 HDL Cholesterol 50 mg/dL 35 - 60 LDL (Calculated) 154 CALC 50 - 159 Laboratory test finding 02/28/2021 [facility] Surface Water Technician: [place] [address] [phone] Vitamin D 25-Hydroxy 38.1 ng/ml 24.0 - 80.0 3 1 100-125 mg/dL PRE-DIABET ES/FASTING >126 mg/dL DIABETES/FASTING 2 CHRONIC KIDNEY DISEASE STAGI NG PER NKF STAGE I & II GFR >= 60 NORMAL TO MILDLY DECREASED STAGE III GFR 30-59 MODERATELY DECREASED STAGE IV GFR 15-29 SEVERELY DECREASED STAGE V GFR <15 VERY LITTLE GFR LEFT ESRD GFR <15 ON SHEETFED PRESS OPERATOR 3 This test was performed [employer] Vitamin D immunoassay kit. Values obtained with different assay methods should not be used interchangeably. Procedures Date Code Description Status 05/31/2021 96018 Office/Outpatient Established SF MDM 10-19 Min Completed 04/19/2021 00810 Office/Outpatient Established Lo w MDM 20-29 Min Completed 02/28/2021 07062 Est Prevent Med (40-64Yrs) Compl eted 02/28/2021 58755 EKG/Interpretation & Report Comp leted 07/15/2016 [id number] Colonoscopy Completed Medical Devices Description No Information Available Encounters Type Date Location Provider Dx Diagnosis Office Visit 05/31/2021 8:00a [facility], [facility] M54.50 Low back pain, unspecified Z28.21 Immunization not carried out because of patient refusal Office Visit 04/19/2021 2:20p [facility], [facility] M54.5 Low back pain Office Visit 02/28/2021 8:00a [facility] Z00.00 Encntr for general adult med ical exam w/o abnormal findings I10 Essential (primary) hyperten sunday F41.9 Anxiety disorder, unspecifie d K21.9 Gastro-esophageal reflux dis ease without esophagitis E55.9 Vitamin D deficiency, unspec ified E78.00 Pure hypercholesterolemia, u nspecified R07.89 Other chest pain Z13.89 Encounter for screening for other disorder Assessments Date Code Description Provider 05/31/2021 M54.50 Low back pain, unspecified ALEX Macdonald JR 05/31/2021 Z28.21 Immunization not carried out bec ause of patient refusal ALEX Arroyo JR 04/19/2021 M54.5 Low back pain ALEX Rodriguez [...] 8:00 am - ALEX Arroyo JR at [facility] 05/31/2021 - ALEX Arroyo JR* M54.50 Low back pain, unspecified* Comments:* SOS taking care of this now, refilled ibuprofen, continue to follow with ortho, MRI ordered next week, follow up in 6 months or sooner if needed * Z28.21 Immunization not carried out because of patient refusal Functional Status Description No Information Available Mental Status Description No Information Available Referrals Refer to Reason for Referral Status Appt Date [facility] CONSULT FOR LOW BACK PAIN Creat ed [address] [place] [address] [phone]
--- OUTSIDE RECORDS SUMMARY | 2021-07-16 09:25 | CCD | Continuity of Care Document ---
Author Author Ronan MURPHY PA Organization Unknown Address [address] [address] Phone [phone] Problems Description No Information Available Social History [...] Arroyo JR 021 Vitamin D (Ergocalciferol) 1.25mg (23693 Ut) Capsules take 1 capsule by mouth [...] H/L Range Note Complete Blood Count 02/28/2021 [facility] Charge Aide: [place] [address] [phone] WBC 6.2 x10*3/UL 4.1 - 10.9 RBC [...] 2.0 - 7.8 Comprehensive Chem Profile 02/28/2021 [facility] Wan Charge Aide: [place] [address] [phone] Glucose 94 mg/dL 74 - 99 1 [...] 60 mL/min >60 2 Lipid Profile 02/28/2021 [facility] Charge Aide: [place] [address] [phone] Cholesterol 238 mg/dL High 131 - 200 Triglycerides 169 mg/dL High 30 - 150 HDL Cholesterol 50 mg/dL 35 - 60 LDL (Calculated) 154 CALC 50 - 159 Laboratory test finding 02/28/2021 [facility] Charge Aide: [place] [address] [phone] Vitamin D 25-Hydroxy 38.1 ng/ml 24.0 - 80.0 3 1 100-125 mg/dL PRE-DIABET ES/FASTING >126 mg/dL DIABETES/FASTING 2 CHRONIC KIDNEY DISEASE STAGI NG PER NKF STAGE I & II GFR >= 60 NORMAL TO MILDLY DECREASED STAGE III GFR 30-59 MODERATELY DECREASED STAGE IV GFR 15-29 SEVERELY DECREASED STAGE V GFR <15 VERY LITTLE GFR LEFT ESRD GFR <15 ON RELATIONSHIP ADVISOR 3 This test was performed [facility] [employer] Vitamin D immunoassay kit. Values obtained with different assay methods should not be used interchangeably. Procedures Date Code Description Status 04/19/2021 31333 Office/Outpatient Established Lo w MDM 20-29 Min Completed 02/28/2021 55824 Est Prevent Med (40-64Yrs) Compl eted 02/28/2021 05146 EKG/Interpretation & Report Comp leted 07/15/2016 [id number] Colonoscopy Completed Medical Devices Description No Information Available Encounters Type Date Location Provider Dx Diagnosis Office Visit 04/19/2021 2:20p [facility], PA M54.5 Low back pain Office Visit 02/28/2021 8:00a [facility] Wiliam ALEX Shukla JR Z00.00 Encntr for general adult med [...] 8:00 am - ALEX Arroyo JR at [facility] 04/19/2021 - ALEX Arroyo JR* M54.5 Low back pain * All * New Medication:* Ibuprofen 800 mg - 1 three times a day with food as needed pain * Prednisone 10 mg - 4 by mouth daily for 3 days then 3 daily for 3 days then 2 daily for 3 days then 1 daily for 3 days and stop. * Comments:* Total time spent with patient: 18 minute with another 10 reviewing the chart and previous treatment regimens. Return to the clinic as scheduled in May or sooner if needed. Patient had no further questions to the best of my knowledge. Functional Status Description No Information Available Mental Status Description No Information Available Referrals Description No Information Available
--- OUTSIDE RECORDS SUMMARY | 2021-07-16 09:26 | CCD ---
Author Author [facility] Organization [facility] Address Unknown Phone Unavailable Care Team Providers Care Psychotherapist Counselor Name Role Phone Brandy MORALES JR, PA-C Unavailable Unavailable Brandy MORALES JR, PA-C Unavailable Unavailable Brandy MORALES JR, PA-C Unavailable Unavailable Brandy MORALES JR, PA-C Unavailable Unavailable Brandy MORALES JRC Unavailable Unavailable Brandy MORALES JR, PA-C Unavailable Unavailable Brandy MORALES JRC Unavailable Unavailable Brandy MORALES JR-C Unavailable Unavailable Brandy MORALES JR-C Unavailable Unavailable Brandy MORALES JR-C Unavailable Unavailable Brandy MORALES JR, PA-C Unavailable Unavailable Brandy MORALES JRC Unavailable Unavailable Brandy MORALES JR-C Unavailable Unavailable Brandy MORALES JR PA-C Unavailable Unavailable Brandy MORALES JR, PA-C Unavailable Unavailable Brandy MORALES JR PAMaryjaneC Unavailable Unavailable Brandy MORALES JRC Unavailable Unavailable Brandy MORALES JR-C Unavailable Unavailable PICKERAL JR, J ALEC PA-C Unavailable Unavailable PICKERAL JR, J ALEC PA-C Unavailable Unavailable PICKERAL JR, J ALEC PA-C Unavailable Unavailable PICKERAL JR, J ALEC PA-C Unavailable Unavailable PICKERAL JR, J ALEC PA-C Unavailable Unavailable PICKERAL JR, J ALEC PA-C Unavailable Unavailable PICKERAL JR, J ALEC PA-C Unavailable Unavailable PICKERAL JR, J ALEC PA-C Unavailable Unavailable PICKERAL JR, J ALEC PA-C Unavailable Unavailable RING, K LAURA PA Unavailable Unavailable RING, K LAURA PA Unavailable Unavailable RING, K LAURA PA Unavailable Unavailable RING, K LAURA PA Unavailable Unavailable RING, K LAURA PA Unavailable Unavailable RING, K LAURA PA Unavailable Unavailable RING, K LAURA PA Unavailable Unavailable RING, K LAURA PA Unavailable Unavailable RING, K LAURA PA Unavailable Unavailable RING, K LAURA PA Unavailable Unavailable RING, K LAURA PA Unavailable Unavailable RING, K LAURA PA Unavailable Unavailable RING, K LAURA PA Unavailable Unavailable RING, K LAURA PA Unavailable Unavailable RING, K LAURA PA Unavailable Unavailable RING, K LAURA PA Unavailable Unavailable RING, K LAURA PA Unavailable Unavailable RING, K LAURA PA Unavailable Unavailable RING, K LAURA PA Unavailable Unavailable RING, K LAURA PA Unavailable Unavailable RING, K LAURA PA Unavailable Unavailable RING, K LAURA PA Unavailable Unavailable RING, K LAURA PA Unavailable Unavailable Maria Teresa Berrios MD Unavailable Unavailable Maria Teresa Berrios MD Unavailable Unavailable Maria Teresa Berrios MD Unavailable Unavailable Maria Teresa Berrios MD Unavailable Unavailable Maria Teresa Berrios MD Unavailable Unavailable Maria Teresa Berrios MD Unavailable Unavailable Maria Teresa Berrios MD Unavailable Unavailable Maria Teresa Berrios MD Unavailable Unavailable Maria Teresa Berrios MD Unavailable Unavailable Maria Teresa Berrios MD Unavailable Unavailable Maria Teresa Berrios MD Unavailable Unavailable Maria Teresa Berrios MD Unavailable Unavailable Maria Teresa Berrios MD Unavailable Unavailable Maria Teresa Berrios MD Unavailable Unavailable Maria Teresa Berrios MD Unavailable Unavailable Maria Teresa Berrios MD Unavailable Unavailable Maria Teresa Berrios MD Unavailable Unavailable Maria Teresa Berrios MD Unavailable Unavailable Maria Teresa Berrios MD Unavailable Unavailable Maria Teresa Berrios MD Unavailable Unavailable AgustinaMaria Teresa MD Unavailable Unavailable AgustinaMaria Teresa de la rosa MD Unavailable Unavailable AgustinaMaria Teresa MD Unavailable Unavailable AgustinaMaria Teresa MD Unavailable Unavailable AgustinaMaria Teresa MD Unavailable Unavailable AgustinaMaria Teresa MD Unavailable Unavailable AgustinaMaria Teresa MD Unavailable Unavailable AgustinaMaria Teresa MD Unavailable Unavailable AgustinaMaria Teresa MD Unavailable Unavailable AgustinaMaria Teresa plummer MD Unavailable Unavailable AgustinaMaria Teresa MD Unavailable Unavailable AgustinaMaria Teresa MD Unavailable Unavailable AgustinaMaria Teresa MD Unavailable Unavailable AgustinaMaria Teresa MD Unavailable Unavailable AgustinaMaria Teresa MD Unavailable Unavailable AgustinaMaria Teresa MD Unavailable Unavailable AgustinaMaria Teresa MD Unavailable Unavailable AgustinaMaria Teresa de la rosa MD Unavailable Unavailable AgustinaMaria Teresa MD Unavailable Unavailable Maria Teresa Berrios MD Unavailable Unavailable Maria Teresa Berrios MD Unavailable Unavailable Maria Teresa Berrios MD Unavailable Unavailable AgustinaMaria Teresa de la rosa MD Unavailable Unavailable Maria Teresa Berrios MD Unavailable Unavailable Maria Teresa Berrios MD Unavailable Unavailable Maria Teresa Berrios MD Unavailable Unavailable Maria Teresa Berrios MD Unavailable Unavailable Maria Teresa Berrios MD Unavailable Unavailable Maria Teresa Berrios MD Unavailable Unavailable Maria Teresa Berrios MD Unavailable Unavailable Maria Teresa Berrios MD Unavailable Unavailable Maria Teresa Berrios MD Unavailable Unavailable Maria Teresa Berrios MD Unavailable Unavailable Maria Teresa Berrios MD Unavailable Unavailable Maria Teresa Berrios MD Unavailable Unavailable Maria Teresa Berrios MD Unavailable Unavailable Maria Teresa Berrios MD Unavailable Unavailable Maria Teresa Berrios MD Unavailable Unavailable Maria Teresa Berrios MD Unavailable Unavailable Maria Teresa Berrios MD Unavailable Unavailable Maria Teresa Berrios MD Unavailable Unavailable Maria Teresa Berrios MD Unavailable Unavailable Maria Teresa Berrios MD Unavailable Unavailable Maria Teresa Berrios MD Unavailable Unavailable Maria Teresa Berrios MD Unavailable Unavailable Maria Teresa Berrios MD Unavailable Unavailable Maria Teresa Berrios MD Unavailable Unavailable Maria Teresa Berrios MD Unavailable Unavailable Maria Teresa Berrios MD Unavailable Unavailable Maria Teresa Berrios MD Unavailable Unavailable Agustina M Sara MD Unavailable Unavailable Maria Teresa Berrios MD Unavailable Unavailable Maria Teresa Berrios MD Unavailable Unavailable Maria Teresa Brerios MD Unavailable Unavailable Maria Teresa Berrios MD Unavailable Unavailable Maria Teresa Berrios MD Unavailable Unavailable Maria Teresa Berrios MD Unavailable Unavailable Maria Teresa Berrios MD Unavailable Unavailable Maria Teresa Berrios MD Unavailable Unavailable Maria Teresa Berrios MD Unavailable Unavailable Maria Teresa Berrios MD Unavailable Unavailable Maria Teresa Berrios MD Unavailable Unavailable Maria Teresa Berrios MD Unavailable Unavailable Maria Teresa Berrios MD Unavailable Unavailable Maria Teresa Berrios MD Unavailable Unavailable ROBBIE, Belia PERRIN MD Unavailable Unavailable ROBBIE, Belia PERRIN MD Unavailable Unavailable ROBBIE, Belia PERRIN MD Unavailable Unavailable ROBBIE, Belia PERRIN MD Unavailable Unavailable ROBBIEBelia MD Unavailable Unavailable ROBBIEBelia MD Unavailable Unavailable ROBBIEBelia MD Unavailable Unavailable ROBBIEBelia MD Unavailable Unavailable ROBBIEBelia MD Unavailable Unavailable ROBBIEBelia MD Unavailable Unavailable ROBBIEBelia MD Unavailable Unavailable ROBBIEBelia MD Unavailable Unavailable ROBBIEBelia MD Unavailable Unavailable ROBBIEBelia MD Unavailable Unavailable ROBBIEBelia MD Unavailable Unavailable ROBBIEBelia MD Unavailable Unavailable ROBBIEBelia MD Unavailable Unavailable ROBBIEBelia MD Unavailable Unavailable ROBBIEBelia MD Unavailable Unavailable ROBBIEBelia MD Unavailable Unavailable ROBBIEBelia MD Unavailable Unavailable ROBBIEBelia MD Unavailable Unavailable ROBBIEBelia MD Unavailable Unavailable ROBBIEBelia MD Unavailable Unavailable ROBBIEBelia MD Unavailable Unavailable ROBBIEBelia MD Unavailable Unavailable ROBBIEBelia MD Unavailable Unavailable ROBBIEBelia MD Unavailable Unavailable ROBBIEBelia MD Unavailable Unavailable ROBBIEBelia MD Unavailable Unavailable ROBBIEBelia MD Unavailable Unavailable ROBBIEBelia MD Unavailable Unavailable ROBBIEBelia MD Unavailable Unavailable ROBBIEBelia MD Unavailable Unavailable ROBBIEBelia MD Unavailable Unavailable ROBBIE, Belia PERRIN MD Unavailable Unavailable ROBBIE, Belia PERRIN MD Unavailable Unavailable ROBBIE, Belia PERRIN MD Unavailable Unavailable ROBBIE, Belia PERRIN MD Unavailable Unavailable ROBBIE, Belia PERRIN MD Unavailable Unavailable ROBBIE, Belia PERRIN MD Unavailable Unavailable ROBBIE, Belia PERRIN MD Unavailable Unavailable ROBBIE, Belia PERRIN MD Unavailable Unavailable ROBBIE, Belia PERRIN MD Unavailable Unavailable ROBBIE, Belia PERRIN MD Unavailable Unavailable ROBBIE, Belia PERRIN MD Unavailable Unavailable ROBBIE, Belia PERRIN MD Unavailable Unavailable ROBBIE, Belia PERRIN MD Unavailable Unavailable ROBBIE, Belia PERRIN MD Unavailable Unavailable ROBBIE, Belia PERRIN MD Unavailable Unavailable ROBBIE, Belia PERRIN MD Unavailable Unavailable ROBBIE, Belia PERRIN MD Unavailable Unavailable ROBBIE, Belia PERRIN MD Unavailable Unavailable ROBBIE, Belia PERRIN MD Unavailable Unavailable ROBBIE, Belia PERRIN MD Unavailable Unavailable ROBBIE, Belia PERRIN MD Unavailable Unavailable ROBBIE, Belia PERRIN MD Unavailable Unavailable ROBBIE, Belia PERRIN MD Unavailable Unavailable ROBBIE, Belia PERRIN MD Unavailable Unavailable ROBBIE, Belia PERRIN MD Unavailable Unavailable ROBBIE, Belia PERRIN MD Unavailable Unavailable ROBBIE, Belia PERRIN MD Unavailable Unavailable ROBBIE, Belia PERRIN MD Unavailable Unavailable ROBBIE, Belia PERRIN MD Unavailable Unavailable ROBBIE, Belia PERRIN MD Unavailable Unavailable ROBBIE, Belia PERRIN MD Unavailable Unavailable ROBBIE, Belia PERRIN MD Unavailable Unavailable ROBBIE, Belia PERRIN MD Unavailable Unavailable ROBBIE, Belia PERRIN MD Unavailable Unavailable ROBBIE, Belia PERRIN MD Unavailable Unavailable ROBBIE, Belia PERRIN MD Unavailable Unavailable ROBBIE, Belia PERRIN MD Unavailable Unavailable ROBBIEBelia MD Unavailable Unavailable ROBBIEBelia MD Unavailable Unavailable ROBBIE, Belia PERRIN MD Unavailable Unavailable ROBBIE, Belia PERRIN MD Unavailable Unavailable ROBBIE, Belia PERRIN MD Unavailable Unavailable ROBBIE, Belia PERRIN MD Unavailable Unavailable ROBBIE, Belia PERRIN MD Unavailable Unavailable ROBBIE, Belia PERRIN MD Unavailable Unavailable ROBBIE, Belia PERRIN MD Unavailable Unavailable ROBBIE, Belia PERRIN MD Unavailable Unavailable ROBBIE, Belia PERRIN MD Unavailable Unavailable ROBBIE, Belia PERRIN MD Unavailable Unavailable ROBBIE, Belia PERRIN MD Unavailable Unavailable SOFIA, J JOE MD Unavailable Unavailable Brandy BLACK MD Unavailable Unavailable Brandy BLACK MD Unavailable Unavailable Brandy BLACK MD Unavailable Unavailable Brandy BLACK MD Unavailable Unavailable Brandy BLACK MD Unavailable Unavailable Brandy BLACK MD Unavailable Unavailable Brandy BLACK MD Unavailable Unavailable Brandy BLACK MD Unavailable Unavailable Brandy BLACK MD Unavailable Unavailable Brandy BLACK MD Unavailable Unavailable Brandy BLACK MD Unavailable Unavailable Brandy BLACK MD Unavailable Unavailable Brandy BLACK MD Unavailable Unavailable Brandy BLACK MD Unavailable Unavailable Brandy BLACK MD Unavailable Unavailable Brandy BLACK MD Unavailable Unavailable Brandy BLACK MD Unavailable Unavailable Brandy BLACK MD Unavailable Unavailable Brandy BLACK MD Unavailable Unavailable Brandy BLACK MD Unavailable Unavailable Brandy BLACK MD Unavailable Unavailable Brandy BLACK MD Unavailable Unavailable Brandy BLACK MD Unavailable Unavailable Brandy BLACK MD Unavailable Unavailable Brandy BLACK MD Unavailable Unavailable Brandy BLACK MD Unavailable Unavailable Brandy BLACK MD Unavailable Unavailable Brandy BLACK MD Unavailable Unavailable Brandy BLACK MD Unavailable Unavailable Brandy BLACK MD Unavailable Unavailable Brandy BLACK MD Unavailable Unavailable Brandy BLACK MD Unavailable Unavailable Brandy BLACK MD Unavailable Unavailable Brandy BLACK MD Unavailable Unavailable Brandy BLACK MD Unavailable Unavailable Brandy BLACK MD Unavailable Unavailable Brandy BLACK MD Unavailable Unavailable Brandy BLACK MD Unavailable Unavailable Brandy BLACK MD Unavailable Unavailable Brandy BLACK MD Unavailable Unavailable Brandy BLACK MD Unavailable Unavailable Brandy BLACK MD Unavailable Unavailable Brandy BLACK MD Unavailable Unavailable Brandy BLACK MD Unavailable Unavailable Brandy BLACK MD Unavailable Unavailable Brandy BLACK MD Unavailable Unavailable Brandy BLACK MD Unavailable Unavailable Brandy BLACK MD Unavailable Unavailable Brandy BLACK MD Unavailable Unavailable Brandy BLACK MD Unavailable Unavailable Brandy BLACK MD Unavailable Unavailable Brandy BLACK MD Unavailable Unavailable Brandy BLACK MD Unavailable Unavailable Brandy BLACK MD Unavailable Unavailable Brandy BLACK MD Unavailable Unavailable SOFIABrandy MD Unavailable Unavailable SOFIABrandy MD Unavailable Unavailable SOFIABrandy MD Unavailable Unavailable SOFIABrandy MD Unavailable Unavailable SOFIA, Brandy VALDES MD Unavailable Unavailable SOFIABrandy MD Unavailable Unavailable SOFIABrandy MD Unavailable Unavailable SOFIABrandy MD Unavailable Unavailable SOFIABrandy MD Unavailable Unavailable SOFIABrandy MD Unavailable Unavailable SOFIABrandy MD Unavailable Unavailable SOFIABrandy MD Unavailable Unavailable SOFIABrandy MD Unavailable Unavailable SOFIABrandy MD Unavailable Unavailable SOFIABrandy MD Unavailable Unavailable SOFIABrandy MD Unavailable Unavailable SOFIABrandy MD Unavailable Unavailable SOFIABrandy MD Unavailable Unavailable SOFIABrandy MD Unavailable Unavailable SOFIABrandy MD Unavailable Unavailable SOFIABrandy MD Unavailable Unavailable SOFIABrandy PEDRAZA MD Unavailable Unavailable SOFIABrandy MD Unavailable Unavailable SOFIABrandy MD Unavailable Unavailable SOFIArBandy MD Unavailable Unavailable SOFIABrandy MD Unavailable Unavailable SOFIABrandy MD Unavailable Unavailable SOFIABrandy MD Unavailable Unavailable SOFIABrandy MD Unavailable Unavailable SOFIABrandy MD Unavailable Unavailable SOFIABrandy MD Unavailable Unavailable SOFIABrandy MD Unavailable Unavailable SOFIABrandy MD Unavailable Unavailable SOFIABrandy MD Unavailable Unavailable SOFIABrandy MD Unavailable Unavailable SOFIABrandy MD Unavailable Unavailable SOFIABrandy MD Unavailable Unavailable SOFIABrandy PEDRAZA MD Unavailable Unavailable SOFIABrandy MD Unavailable Unavailable SOFIABrandy MD Unavailable Unavailable Re-disclosure Warning The records that you are about to access may contain information from federally-assisted alcohol or drug abuse programs. If such information is present, then the following federally mandated warning applies: This information has been disclosed to you from records protected by federal confidentiality rules (42 CFR part 2). The federal rules prohibit you from making any further disclosure of this information unless further disclosure is expressly permitted by the written consent of the person to whom it pertains or as otherwise permitted by 42 CFR part 2. A general authorization for the release of medical or other information is NOT sufficient for this purpose. The Federal rules restrict any use of the information to criminally investigate or prosecute any alcohol or drug abuse patient.The records that you are about to access may contain highly sensitive health information, the redisclosure of which is protected by Article 27-F of the [facility] Public Health law. If you continue you may have access to information: Regarding HIV / AIDS; Provided by facilities licensed or operated by the [facility] Office of Mental Health; or Provided by the [facility] Office for People With Developmental Disabilities. If such information is present, then the following [facility] mandated warning applies: This information has been disclosed to you from confidential records which are protected by state law. State law prohibits you from making any further disclosure of this information without the specific written consent of the person to whom it pertains, or as otherwise permitted by law. Any unauthorized further disclosure in violation of state law may result in a fine or skilled nursing sentence or both. A general authorization for the release of medical or other information is NOT sufficient authorization for further disc losure. Family History Family Member Name Family Member Gender Family Member Status Date o f Status Description Data Source(s) Unknown Unknown Problem [facility] ([facility]) Son - Jeromy, age 6 Unknown Unknown Problem [facility] father Unknown Male Problem [facility] ([facility]) Unknown Female Problem [facility] ([facility]) Unknown Female Problem [facility] ([facility] Encounters Encounter Providers Location Date Indications Data Source(s ) Outpatient Attender: JOE BLACK MDReferrer: Sara Darby MD 06/29/2021 12:20:58 PM EST [facility] Outpatient Attender: JOE GUEVARAeferrer: JOE BLACK MD 06/08/2021 11:55:05 AM EDT [facility] Recurring Patient Attender: MARYCHUY GUEVARAeferrer: Sara carballo MD 06/08/2021 10:18:58 AM EDT [facility] Outpatient Attender: ALEC Melendez 1 08:00:00 AM EDT [facility] ([facility] ) Outpatient Attender: JOE GUEVARAeferrer: Sara Darby MD 05/12/2021 06:43:09 PM EDT [facility] Recurring Patient Attender: MARYCHUY DEL RIOROD MDReferrer: Sara carballo MD 05/10/2021 02:15:03 PM EDT [facility] Recurring Patient Attender: MARYCHUY AVALOS MDReferrer: Sara carballo MD 05/02/2021 02:42:47 PM EDT [facility] Outpatient Attender: ALEC Melendez 0 04/19/2021 02:20:00 PM EDT [facility] ([facility] ) Outpatient Attender: ALEC Melendez 0 02/28/2021 08:00:00 AM EDT [facility] ([facility] ) Outpatient Attender: LAURA Cadena 12/21/2020 09:35:00 AM EDT [facility] ([facility]) Outpatient Attender: ALEC Melendez 1 10/08/2019 10:20:00 AM EST [facility] ([facility] ) Immunizations Vaccine Date Status Description Data Source(s) COVID-19 VACCINE Pfizer 06/28/2021 12:00:00 AM EST completed [facility] Vaccine Series Complete: YESThis Data wa s Submitted to [facility] Via [employer]. COVID-19 VACCINE Pfizer 06/07/2021 12:00:00 AM EDT completed [facility] Vaccine Series Complete: NOThis Data was Submitted to [facility] Via [employer]. Influenza, injectable, MDCK, preservative free, cathi valent 05/31/2021 07:58:00 AM EDT completed [facility]) Tdap 12/21/2020 10:09:00 AM EDT completed M [facility]ENT ([facility]) Medications Medication Brand Name Start Date Product Form Dose Route Admi nistrative Instructions Pharmacy Instructions Status Indications Reaction Description Data Source(s) Prednisone 10 MG Oral Tablet Prednisone 04/19/2021 12:00:00 AM EDT ORAL completed [facility] ([facility]) Ibuprofen 800 MG Oral Tablet Ibuprofen 04/19/2021 12:00:00 AM EDT active [facility] ([facility]) Mupirocin 0.02 MG/MG Topical Ointment Mupirocin 12/21/2020 12:00:00 AM EDT active [facility] ([facility]) Amoxicillin 875 MG / Clavulanate 125 MG Oral Tablet Am oxicillin/Clavulanate Potassium 12/21/2020 12:00:00 AM EDT ORAL active [facility] ([facility]) Prednisone 10 MG Oral Tablet Prednisone 08/07/2020 12:00:00 AM EST ORAL active [facility] ([facility]) Insurance Providers Payer name Policy type / Coverage type Policy ID Covered green party ID Covered green party's relationship to garcia Policy Garcia Plan Information [facility] Workers Compensation [id number] Self [id number] [facility] Workers Compensation [id number] Self [id number] [facility]) Workers Compensation [id number] Self [id number] [facility]) Workers Compensation [id number] Self [id number] [facility]) Workers Compensation [id number] Self [id number] [facility]) Workers Compensation [id number] Self [id number] [facility]) Workers Compensation [id number] Self [id number] [employer] Workers Compensation [id number] Self [id number] [facility] Workers Compensation [id number] Self [id number] [facility] Workers Compensation [id number] Self [id number] [facility] Workers Compensation [id number] Self [id number] [facility] Workers Compensation [id number] Self [id number] [facility] Workers Compensation [id number] [id number] [facility] Maintenance Organization ([facility]) [id number] [facility] Maintenance Organization (O) [id number] Self [id number] [facility] Health Maintenance Organization (O) [id number] [facility] Maintenance Organization (O) [id number] Self [id number] [facility] Workers Compensation [id number] Self [id number] [facility] () Workers Compensation [id number] Self [employer] E[employer] [place] [employer] [id number] SP [id number] [employer] [id number] SP [id number] [employer] [place] [employer] [id number] SP [id number] [employer] [place] [employer] [id number] SP [id number] [facility] [place] Commercial [id number] ..[id number] Self [id number] [facility] [place] Commercial [id number] Self [facility] [place] Commercial [id number] ...[id number] Self [id number] [facility] [place] Commercial [id number] Self [id number] [place] F [id number] SELF [id number] [facility] [place] Commercial [id number] ...[id number] Self [id number] [facility] [place] Commercial [id number] ..[id number] Self [id number] [facility] [place] Commercial [id number] ..[id number] Self [id number] [facility] [place] [employer] [id number] ...[id number] Self [id number] [facility] [place] Commercial [id number] ..[id number] Self [id number] [facility] [place] Commercial [id number] Self [id number] [facility] [id number] SP [id number] [facility] [place] Commercial [id number] Self [id number] STATE INSURANCE FUND [id number] SP [id number] STATE INSURANCE FUND O [id number] S [id number] [employer] E[employer] [place] DIV [id number] [employer] O [id number] S [id number] [facility] [id number] [facility] Health Maintenance Organization (HMO) [id number] Self STATE INSURANCE FUND [id number] SP [id number] 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 -O/P [id number] 18 [id number] [employer] E[employer] [place] DIV [id number] SP [id number] [facility] [place] Commercial [id number] Self [employer] E[employer]IRE [place] DIV [id number] SP [id number] [facility] Health Maintenance Organization (HMO) [id number] Self STATE INSURANCE FUND [id number] SP [id number] STATE INSURANCE FUND P [id number] S [id number] [employer] P [id number] S [id number] STATE INS[employer] FUND [id number] SP [id number] [employer] P UNAVAILABLE [id number] S UNAVAILABLE [facility] P [id number] S [id number] Problems, Conditions, and Diagnoses No Information Surgeries/Procedures Procedure Description Date Indications Data Source(s) OFFICE OUTPATIENT VISIT 10 MINUTES 05/31/2021 12:00:00 AM EDT [facility] ([facility]) OFFICE OUTPATIENT VISIT 15 MINUTES 04/19/2021 12:00:00 AM [facility]T [facility] ECG ROUTINE ECG W/LEAST 12 LDS W/I&R 02/28/2021 12:00: 00 AM EDT [facility] ([facility]) PERIODIC PREVENTIVE MED EST PATIENT 40-64YRS 12:00:00 AM EDT [facility] ([facility]) Results ID Date Data Source [id number] 06/29/2021 12:21:44 PM EST [facility], PCName: Ronan CulverDOB: 1975Provider: Joe BlackDOS: 06/29/2021 Reason For VisitSallison Culver is here today for Lumbar Spine. Patient denies any symptoms of or pending results for COVID 19 or contact with anyone with COVID 19. Ronan has not had the Covid vaccine. Ronan Culver is an established patient here for follow up. Same day MRI follow up. Other DOI/DOO: 1995. Patient states his pain began road octobering. Patient is a(n) [employer]. 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 History of Present IllnessPatient is seen in follow up from last visit. Since last visit he has been evaluated with an MRI. No new significant clinical changes compared to last office visitChronic low back painRecent exacerbation February 2021 The patient complains of pain in the lumbar spine . The patient states that the timing of the pain is continuous . The pain radiates to both, posterior, buttock(s), thigh(s), leg(s) and S1 distribution . The patient states that the timing of the pain is intermittent . Right worse than left The patient denies signs of bladder dysfunction, bowel dysfunction, cancer/metastasis, infection and myelopathy . The pain is achy . The pain severity is rated 5-6 out of 10. Pain is aggravated by standing, walking and periods of activity . He states that the pain is relieved by sitting. There is numbness involving both thigh(s), leg(s) and feet. The numbness is intermittent. Results/Data XRays previously taken at [facility] were reviewed today. Site: Lumbar Spine Views: 2 Views, AP/Lateral Standing Findings:. degenerative disc disease of a moderate degree. Results/Data OtherBelow diagnostic testing were independently reviewed as well as reviewed the official corresponding reports:MRI lumbar SOS 06/08/2021: Multilevel DDD. Multilevel small disc protrusions/annular tears at L2-3, L3-4, L4-5 and L5-S1. 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 Radiologist interpretation-perineural cyst, not nerve sheath tumor. No imaging follow-up recommended by radiology.Reviewed in detail the results of the diagnostic testing. Reviewed the pertinent applicable clinical implications relating to the patient Assessment 1. HNP (herniated nucleus pulposus), lumbar (722.10) (M51.26) 2. Degenerative lumbar disc (722.52) (M51.36) 3. Annular tear (722.90) (M51.9) condition: Acute on chronicetiology: age-related spine/joint degenerationlevels: L4-5 and L5-S1, L2-3 and L3-4 PlanPlan, Assessment and Recommendation(s) Follow up as needed, if not improving, or getting worse. Regarding his lower back complaints-discussion reviewing the different treatment conservative options(observation, medication(s), physical therapy, long term care phlebotomist, acupuncture, pain clinic, home exercise program, etc.)--- with pros and cons, potential risks/potential benefits of each option, as well as the chances of successes/failures of each option.At this time, they wish to proceed with:Continue long term care phlebotomist This document was dictated and electronically signed using Sophono software. A reasonable attempt at proof reading has been made to minimize errors. Please call with any questions. Signatures Electronically signed by : Joe Black M.D.; Jun 29 2021 12:20PM EST (Author) Electronically signed by : Joe Black M.D.; Jun 29 2021 12:21PM EST (Author) Name Value Range Interpretation Code Description Data Mariana rce(s) Supporting Document(s) ID Date Data Source [id number] 06/29/2021 12:11:35 PM EST [facility] FINAL REPORTPatient Name: Greta Feng nPatient ID: [id number] Date: 1Exam Description: MRI L-SPINE W/O & W CONTRAST AND ADD'L SEQUENCESReferring Physician: Joe Black EXAM: MRI Lumbar spine with and without contrastINDICATION: Low back pain. Evaluate right L2-3 perineural cyst versus peripheral nerve sheath tumor at the superior lateral aspect of the right L2-3 neural foramen seen on prior MRI 06/08/2021. No prior lumbar spine surgery. Chronic lower back pain.COMPARISON: MRI lumbar spine 06/08/2021, lumbar spine radiographs 05/11/2021 the theTECHNIQUE: Multisequence multiplanar axial and sagittal MR imaging of the lumbosacral spine was performed on a 1.5T GE unit prior to and following the intravenous administration of gadolinium contrast.CONTRAST: 20 mL ClariscanFINDINGS: There is again straightening of the normal lumbar lordosis. 3 mm retrolisthesis of L5 on S1, unchanged. Vertebral body heights are maintained. Mild posterior L4-5 and moderate posterior L5-S1 disc space narrowing. Decreased disc hydration at L3-4 through L5-S1, similar to prior. Normal marrow signal. The conus terminates at the inferior L1 level.L1-2: Unremarkable. L2-3: Mild bilateral facet joint hypertrophy. Minimal broad-based posterior disc bulge with mild bilateral intraforaminal extension. No significant central canal or neural foraminal stenosis. The previously seen tiny 7 mm likely mildly increased T2 and decreased T1 signal focus in between the exiting right L2 nerve and the posterior lateral aspect of the L2-3 disc space (axial series 4, image 16, postcontrast axial series 9, image 9, sagittal STIR series 5, image 4) is not significantly changed from prior. On the current postcontrast images there appears to be minimal peripheral enhancement in this region but no definite diffusely enhancing mass to indicate a nerve sheath tumor. The small size limits evaluation, however this is favored to represent a small perineural cyst. L3-4: Mild bilateral facet joint hypertrophy. Midline posterior annular disc tear and minimal broad-based posterior disc osteophyte complex. No significant central canal or neural foraminal stenosis. No significant change. L4-5: Midline posterior annular disc tear. Mild broad-based posterior disc bulge measures up to 4 mm in AP dimension and mildly impresses on the ventral thecal sac, mildly contacting the bilateral descending L5 nerves within the lateral recesses. Mild narrowing of the lateral recesses and borderline mild central canal stenosis, unchanged from prior. No neural foraminal stenosis. L5-S1: Mild bilateral facet joint hypertrophy. Broad- based posterior disc bulge with midline superimposed posterior disc protrusion measuring up to 7 mm in AP dimension. Disc again minimally impresses on the descending left greater than right S1 nerve within the lateral recesses and also minimally impresses on the midline thecal sac. Mild to moderate narrowing of the lateral recesses, unchanged. No significant central canal stenosis. No signific ant neural foraminal stenosis. No significant change. Incidental note of a circumaortic left renal vein. No abdominal aortic aneurysm. IMPRESSION: Compared to 06/08/2021: 1. No significant change in size of small approximate 7 mm increased T2 signal focus between the exiting right L2 nerve and the right L2-3 lateral disc. There appears to be minimal peripheral enhancement in this region but no definite diffusely enhancing mass to indicate a nerve sheath tumor. The small size limits evaluation, however this is favored to represent a small perineural cyst. 2. Otherwise, no significant change in multilevel degenerative disc and joint changes.3. L4-5 mild narrowing of the lateral recesses and borderline mild central canal stenosis.4. L5-S1 [id number] narrowing of the lateral recesses.Electronically signed by: Barron Mccormick Dictated: 06/29/2021 12:11Electronically Sign Name Value Range Interpretation Code Description Data Mariana rce(s) Supporting Document(s) ID Date Data Source [id number] 06/08/2021 11:55:05 AM EDT [facility] PCName: Ronan CulverDOB: 1975Provider: Luigi Black: 06/08/2021 Reason For VisitSallison Culver is here today for L Spine. Patient denies any symptoms of or pending results for COVID 19 or contact with anyone with COVID 19. Ronan has not had the Covid vaccine. Ronan Culver is an established patient here for follow up. Same day MRI follow up. Other DOI/DOO: 1995. 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 Patient is a(n) [employer]. 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 History of Present IllnessPatient is seen in follow up from last visit. Since last visit he has been evaluated with an MRI. No new significant clinical changes compared to last office visitChronic low back painRecent exacerbation February 2021He has been doing home exercises learned in physical therapy-not helpfulMedications include Motrin-not helpful The patient complains of pain in the lumbar spine . The patient states that the timing of the pain is continuous . The pain radiates to both, posterior, buttock(s), thigh(s), leg(s) and S1 distribution . The patient states that the timing of the pain is intermittent . Right worse than left The patient denies signs of bladder dysfunction, bowel dysfunction, cancer/metastasis, infection and myelopathy . The pain is achy . The pain severity is rated 5-6 out of 10. Pain is aggravated by standing, walking and periods of activity . He states that the pain is relieved by sitting. There is numbness involving both thigh(s), feet and leg(s). The numbness is intermittent. Results/Data XRays previously taken at [facility] were reviewed today. Site: Lumbar Spine Views: 2 Views, AP/Lateral Standing Findings:. degenerative disc disease of a moderate degree. Results/Data OtherBelow diagnostic testing were independently reviewed as well as reviewed the official corresponding reports:MRI lumbar SOS 06/08/2021: Multilevel DDD. Multilevel small disc protrusions/annular tears at L2-3, L3-4, L4-5 and L5-S1. 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 Degenerative lumbar disc (722.52) (M51.36) 2. Low back pain (724.2) (M54.50) 3. Herniated nucleus pulposus, L5-S1 (722.10) (M51.27) 4. HNP (herniated nucleus pulposus), lumbar (722.10) (M51.26) condition: Acute on chronicetiology: age-related spine/joint degenerationlevels: L4-5 and L5-S1, L2-3 and L3-4 Plan MRI (SOS) Referral Diagnostic Diagnostic Status: Need Information - FinancialAuthorization Requested for: 08Jun2021 Ordered;For: Low back pain; Ordered By: Joe Black Performed: Order Comments: SAME DAY FOLLOW UP Due: 22Jun2021; Last Updated By: Claudia Alba; 06/08/2021 10:47:09 AMReason: : evaluate right lumbar 2-3 cyst vs tumor per radiologyPatient will follow up with: : Sofia - SAME DAY FOLLOW UPMRI Ordered Contrast : 02: without and with Gado IVLaterality: : _Not Applicable Plan, Assessment and Recommendation(s) Schedule appointment: After further diagnostic testing is completed and available for review. Regarding his lower back complaints-discussion reviewing the different treatment conservative options(observation, medication(s), physical therapy, long term care phlebotomist, acupuncture, pain clinic, home exercise program, etc.)--- with pros and cons, potential risks/potential benefits of each option, as well as the chances of successes/failures of each option.At this time, they wish to proceed with:He will seek out chiropractic careRegarding the possible right L2-3 perineural cyst versus nerve sheath tumor-we will obtain a lumbar spine with gadolinium as per radiology recommendations This document was dictated and electronically signed using Sophono software. A reasonable attempt at proof reading has been made to minimize errors. Please call with any questions. Signatures Electronically signed by : Joe Black M.D.; Jun 08 2021 11:55AM EST (Author) Name Value Range Interpretation Code Description Data Mariana rce(s) Supporting Document(s) ID Date Data Source [id number] 06/08/2021 09:03:25 AM EDT [facility] FINAL REPORTPatient Name: Greta Feng nPatient ID: [id number] Date: 06/08/2021xam Description: MRI L-SPINE W/O CONTRASTReferring Physician: Joe Black EXAM: MRI Lumbar spine without contrastINDICATION: Low back pain COMPARISON: Lumbar spine x-ray dated 05/11/2021. TECHNIQUE: Multisequence multiplanar axial and sagittal MR imaging of the lumbosacral spine was performed on a 1.5T Elementum unit. Intravenous contrast was not administered.FINDINGS: For the purpose of nomenclature, the most inferior intervertebral disc fully included within the axial series will be designated L5-S1. Vertebral body heights are preserved without fracture. Mild straightening of the normal lumbar lordosis. No spondylolisthesis. Mild disc desiccation at L3-L4, L4-L5, L5-S1 with mild height loss at L5-S1. Conus terminates at L1 and is unremarkable. Specific findings are as follows: T12-L1 and L1-L2: No disc herniation, spinal canal stenosis, or neural foraminal narrowing.L2-L3: Small broad-based disc protrusion without significant spinal canal stenosis or neural foraminal narrowing. There is a mildly T2/STIR hyperintense, T1 hypointense 7 mm rounded focus at the superolateral aspect of the right neural foramen (series 4, image 17 and series 5, image 4) that may represent a small perineural cyst but a nerve sheath tumor cannot be entirely excluded. L3-L4: Shallow central disc protrusion with punctate annular tear. No significant spinal canal stenosis or neural foraminal narrowing. L4-5: Broad- based disc protrusion with central annular tear and mild facet degenerative changes results in mild narrowing of the lateral recesses. No significant spinal canal stenosis or neural foraminal narrowing. L5-S1: Broad-based central disc protrusion with annular tear indents the thecal sac and abuts the de scending left S1 nerve root with mild lateral recess narrowing, left greater than right. There is mild facet hypertrophy without significant spinal canal stenosis or neural foraminal narrowing. Miscellaneous: Circumaortic left renal vein. IMPRESSION: 1. Multilevel small disc protrusions with annular tearing in the mid and lower lumbar spine, mid pronounced at L5-S1 with mild narrowing the lateral recesses and abutment of the descending left S1 nerve root. No significant canal stenosis or neural foraminal narrowing. 2. Subcentimeter perineural cyst versus peripheral nerve sheath tumor at the superolateral aspect of the right L2-L3 neural foramen. Suggest repeat follow-up contrast-enhanced lumbar spine MRI. Electronically signed by: Chantelle Travis Dictated: 06/08/2021 09:03 . Name Value Range Interpretation Code Description Data Mariana rce(s) Supporting Document(s) ID Date Data Source [id number] 05/12/2021 06:43:09 PM EDT [facility] PCName: Ronan CulverDOB: 1975Provider: Luigi Black: 05/11/2021 Reason For VisitSallison Culver is here today for L Spine. Patient denies any symptoms of or pending results for COVID 19 or contact with anyone with COVID 19. Ronan has not had the Covid vaccine. Ronan Culver is a new patient. L Spine eval, xrays imported, no PT Other DOI/DOO: 1995. 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 The patient has not had a course of physical therapy for greater than 4 weeks. Physical therapy and/or home exercise program has not been effective. The patient has had a course of NSAIDs for greater than 4 weeks. NSAIDs usage has not been effective. NSAID Name: ibuprofen. Patient is a(n) [employer]. 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 History of Present IllnessChronic low back painRecent exacerbation February 2021He has been doing home exercises learned in physical therapy-not helpfulMedications include Motrin-not helpful The patient complains of pain in the lumbar spine . The patient states that the timing of the pain is continuous . The pain radiates to both, posterior, buttock(s), thigh(s), leg(s) and S1 distribution . The patient states that the timing of the pain is intermittent . Right worse than left The patient denies signs of bladder dysfunction, bowel dysfunction, cancer/metastasis, infection and myelopathy . The pain is achy . The pain severity is rated 6 out of 10. Pain is aggravated by standing, walking and periods of activity . He states that the pain is relieved by sitting. There is numbness involving both thigh(s), feet and leg(s). The numbness is intermittent. Results/DataXRays were ordered, obtained and interpreted today in the office. Indication: pain/dysfunction. Site: Lumbar Spine Views: 2 Views, AP/Lateral Standing Findings:. degenerative disc disease of a moderate degree. Assessment 1. Low back pain (724.2) (M54.50) 2. Degenerative lumbar disc (722.52) (M51.36) condition: Acute on chronicetiology: age-related spine/joint degenerationlevels: L4-5 and L5-S1 Plan X-Ray I Lumbosacral - 2 views (XRays were ordered, obtained and interpreted today inthe office. Indication: pain/dysfunction.); Status:Complete; Done: 11May2021 Perform:SOS22; Due:25May2021; Last Updated By:Fatuma Lam; 05/11/2021 2:29:22 PM;Ordered; For:Low back pain; Ordered By:Joe Black; MRI (SOS) Referral Diagnostic Diagnostic Status: Need Information - FinancialAuthorization Requested for: 11May2021 Ordered;For: Low back pain; Ordered By: Joe Black Performed: Order Comments: Same day follow up Due: 25May2021; Last Updated By: Bridgette Mays; 05/11/2021 2:47:19 PMPatient will follow up with: : [facility]RI Ordered Contrast : 01: without gadoLaterality: : _Not Applicable Plan, Assessment and Recommendation(s) Schedule appointment: After further diagnostic testing is completed and available for review. Discussion reviewing the different treatment conservative options(observation, medication(s), physical therapy, long term care phlebotomist, acupuncture, pain clinic, home exercise program, etc.)--- with pros and cons, potential risks/potential benefits of each option, as well as the chances of successes/failures of each option.At this time, they wish to proceed with:Additional testing-MRI lumbar spineMRI lumbar requested to further delineate/clarify the etiology of the patient's complaints and to further assist in delineating future treatment algorithm. Also patient's clinical systems consistent with lumbar stenosis This document was dictated and electronically signed using Sophono software. A reasonable attempt at proof reading has been made to minimize errors. Please call with any questions. Signatures Electronically signed by : Joe Black M.D.; May 12 2021 6:43PM EST (Author) Name Value Range Interpretation Code Description Data Mariana rce(s) Supporting Document(s) ID Date Data Source [id number] 02/28/2021 08:31:00 AM [facility] Name Value Range Interpretation Code Description Data Mariana rce(s) Supporting Document(s) Calcidiol [Mass/volume] in Serum or Plasma 38.1 ng/mL 24.0-80.0 [facility] This test was performed using FastPack I P Vitamin D immunoassay kit. Values obtained with different assay methods should not be used interchangeably. ID Date Data Source [id number] 02/28/2021 08:31:00 AM [facility] Name Value Range Interpretation Code Description Data Mariana rce(s) Supporting Document(s) Cholesterol in HDL [Mass/volume] in Serum or Plasma 50 mg/dL 35-60 [facility] ([facility]) Cholesterol [Mass/volume] in Serum or Plasma 238 mg/dL 131-200 [facility] ([facility]) Triglyceride [Mass/volume] in Serum or Plasma 169 mg/dL 30-150 [facility] ([facility]) Cholesterol in LDL [Mass/volume] in Serum or Plasma by calcu lation 154 CALC 50-159 [facility] ([facility]) ID Date Data Source [id number] 02/28/2021 08:31:00 AM EDT [facility] ([facility]) Name Value Range Interpretation Code Description Data Mariana rce(s) Supporting Document(s) Urea nitrogen [Mass/volume] in Serum or Plasma 14 mg/dL 7-18 [facility] ([facility]) Creatinine 1.2 mg/dL 0.6-1.3 [facility] ([facility]) Glucose [Mass/volume] in Serum or Plasma 94 mg/dL 74-99 [facility] ([facility]) 100-125 mg/dL PRE-DIABETES/FASTING >126 mg/dL DIABETES/FASTING Chloride [Moles/volume] in Serum or Plasma 106 meq/L 98-107 [facility] ([facility]) Potassium [Moles/volume] in Serum or Plasma 4.8 meq/L 3.5-5.1 [facility] ([facility]) Sodium [Moles/volume] in Serum or Plasma 144 meq/L 136-145 [facility] ([facility]) Carbon dioxide, total [Moles/volume] in Serum or Plasma 27 meq/L 21 -32 [facility] ([facility]) Alkaline phosphatase isoenzyme [Units/volume] in Serum or Pl asma 76 mg/dL 46-116 [facility] ([facility]) Calcium [Mass/volume] in Serum or Plasma 10.0 mg/dL 8.5-10.1 [facility] ([facility]) Alanine aminotransferase [Enzymatic activity/volume] in Seru m or Plasma 52 U/L 12-78 [facility] ([facility]) Aspartate aminotransferase [Enzymatic activity/volume] in Serum or Plasma 24 U/L 15-37 [facility] ([facility] ) Total Bilirubin 0.6 mg/dL 0.2-1.0 [facility] ([facility]) Albumin [Mass/volume] in Serum or Plasma 3.9 g/dL 3.4-5.0 [facility] ([facility]) Proteinase 3 Ab [Units/volume] in Serum 7.4 g/dL 6.4-8.2 [facility] ([facility]) A/G Ratio 1.11 CALC 1.00-1.90 [facility] Glomerular filtration rate/1.73 sq M pre dicted among non-blacks [Volume Rate/Area] in Serum or Plasma by Creatinine-based formula (MDRD) Laboratory test result [facility] ([facility] ) Glomerular filtration rate/1.73 sq M pre dicted among blacks [Volume Rate/Area] in Serum or Plasma by Creatinine-based formula (MDRD) Laboratory test result [facility] ([facility]) <content>CHRONIC KIDNEY DISEASE STAGING PER NKF</content>
<content></content>
<content>STAGE I & II GFR >= 60 NORMAL TO MILDLY DECREASED</content>
<content>STAGE III GFR 30-59 MODERATELY DECREASED</content>
<content>STAGE IV GFR 15-29 SEVERELY DECREASED</content>
<content>STAGE V GFR <15 VERY LITTLE GFR LEFT</content>
<content>ESRD GFR <15 ON INTEGRITY ASSESSOR</content>
<content></content> ID Date Data Source [id number] 02/28/2021 08:31:00 AM ED[facility] Name Value Range Interpretation Code Description Data Mariana rce(s) Supporting Document(s) Leukocytes [#/volume] in Blood by Automated count 6.2 x10*3/UL 4.1-10 .9 [facility] ([facility]) Hematocrit [Volume Fraction] of Blood by Automated count 44.2 % 3 7.0-51.0 [facility] ([facility]) Hemoglobin [Mass/volume] in Blood 14.9 g/dL 12.0-18.0 [facility] ([facility]) Erythrocytes [#/volume] in Blood by Automated count 5.14 x10*6/UL 4.2 0-6.30 [facility] ([facility]) MCV 86.0 fL 80.0-97.0 [facility] MCHC 33.9 g/dL 31.0-38.0 [facility] MCH 29.1 pg 26.0-32.0 [facility] Platelets [#/volume] in Blood by Automated count 414 x10*3/UL 140-440 [facility] ([facility]) MPV 7.4 FL 7.8-11.0 [facility] Erythrocyte distribution width [Ratio] by Automated count 12.9 % 11.6-13.7 [facility] ([facility]) Lymph % 26.9 % 10.0-58.5 [facility] Neut % 67.0 % 37.0-92.0 [facility] Mid % 6.1 % 1.7-9.3 [facility] Neut # 4.1 x10*3/UL 2.0-7.8 [facility] ([facility]) Lymph # 1.6 x10*3/UL 0.6-4.1 [facility] ([facility]) Mid # 0.5 x10*3/UL 0.1-0.6 [facility] ([facility]) ID Date Data Source [id number] 08/22/2020 12:00:00 AM EST [facility] Name Value Range Interpretation Code Description Data Mariana rce(s) Supporting Document(s) SARS-CoV2 Rapid Antigen Positive [facility] This lab was ordered by [facility] and reported by [facility]. ID Date Data Source [id number] 08/21/2020 12:30:00 PM EST [facility] Name Value Range Interpretation Code Description Data Mariana rce(s) Supporting Document(s) SARS coronavirus 2 RNA Detected [facility] This lab was ordered by [facility] and reported by [facility]. ID Date Data Source [id number] 08/16/2020 12:00:00 AM EST [facility] Name Value Range Interpretation Code Description Data Mariana rce(s) Supporting Document(s) SARS-CoV2 Rapid Antigen Negative [facility] This lab was ordered by [facility] and reported by [facility]. Procedure Social History No Information Vital Signs ID Date Data Source UNK Name Value Range Interpretation Code Description Data Source(s) Body height 70 [in_i] 70 [in_i] [facility] ([facility]) 5'10" Body weight 212.00 [lb_av] 212.00 [lb_av] [facility] T ([facility]) Body mass index (BMI) [Ratio] 30.4 kg/m2 30.4 k g/m2 [facility] ([facility]) Systolic blood pressure 126 mm[Hg] 126 mm[Hg] M [facility] ([facility]) Diastolic blood pressure 88 mm[Hg] 88 mm[Hg] [facility] ([facility]) Heart rate 88 /min 88 /min [facility] ([facility]) Diastolic blood pressure 92 mm[Hg] 92 mm[Hg] [facility] ([facility]) Heart rate 115 /min 115 /min [facility] ([facility]) Body height 70 [in_i] 70 [in_i] [facility] ([facility]) 5'10" Oxygen saturation in Arterial blood by Pulse oximetry 97 % 97 % [facility] ([facility]) Body mass index (BMI) [Ratio] 30.3 kg/m2 30.3 k g/m2 [facility] ([facility]) Body weight 211.00 [lb_av] 211.00 [lb_av] [facility] Systolic blood pressure 136 mm[Hg] 136 mm[Hg] [facility] ([facility]) Heart rate 102 /min 102 /min [facility] ([facility]) Oxygen saturation in Arterial blood by Pulse oximetry 98 % 98 % [facility] ([facility]) Air Body mass index (BMI) [Ratio] 30.0 kg/m2 30.0 k g/m2 [facility] ([facility]) Systolic blood pressure 128 mm[Hg] 128 mm[Hg] [facility] Body height 70 [in_i] 70 [in_i] [facility] ([facility]) 5'10" Body weight 209.00 [lb_av] 209.00 [lb_av] [facility] T ([facility]) Systolic blood pressure 140 mm[Hg] 140 mm[Hg] [facility] Diastolic blood pressure 90 mm[Hg] 90 mm[Hg] [facility] Diastolic blood pressure 84 mm[Hg] 84 mm[Hg] [facility] Systolic blood pressure 131 mm[Hg] 131 mm[Hg] [facility]) Body height 71 [in_i] 71 [in_i] [facility] ([facility], [facility]) 5'11" Body mass index (BMI) [Ratio] 28.6 kg/m2 28.6 k g/m2 [facility] ([facility], [facility]) Diastolic blood pressure 93 mm[Hg] 93 mm[Hg] [facility]) Heart rate 94 /min 94 /min [facility], [facility]) Respiratory [facility] 16 /min 16 /min [facility], [facility]) Oxygen saturation in Arterial blood by Pulse oximetry 97 % 97 % [facility] ([facility], [facility]) Body temperature 97.1 [degF] 97.1 [degF] [facility] ([facility], [facility]) Body weight 205.00 [lb_av] 205.00 [lb_av] [facility] T ([facility], [facility]) Systolic blood pressure 128 mm[Hg] 128 mm[Hg] [facility] RT Arm Diastolic blood pressure 94 mm[Hg] 94 mm[Hg] [facility] RT Arm Heart rate 80 /min 80 /min [facility] Body mass index (BMI) [Ratio] 30.0 kg/m2 30.0 k g/m2 [facility] ([facility]) Body height 70 [in_i] 70 [in_i] [facility] ([facility]) 5'10" Body weight 209.38 [lb_av] 209.38 [lb_av] [facility] T ([facility])
[2021-07-16 10:37] LABS: RSV AMPLIFICATION NEGATIVE (NEGATIVE)
--- OUTSIDE RECORDS SUMMARY | 2021-07-16 12:13 | CCD ---
Author Author [facility] Organization [facility] Address Unknown Phone Unavailable Care Team Providers Care Template Fitter Name Role Phone Brandy MORALES JR, PA-C [...] Unavailable Unavailable Brandy MORALES JRC Unavailable Unavailable Brnady MORALES JR-C Unavailable Unavailable PICKERAL JR, J [...] Belia PERRIN MD Unavailable Unavailable ROBBIE, Belia EPRRIN MD Unavailable Unavailable ROBBIE, Belia PERRIN MD [...] ROBBIE, Belia PERRIN MD Unavailable Unavailable ROBBIE, Bleia PERRIN MD Unavailable Unavailable ROBBIE, Belia PERRIN MD Unavailable Unavailable ROBBIE, Belia PERRIN MD Unavailable Unavailable ROBBIE, Belia PERRIN MD Unavailable Unavailable ROBBIE, Belia PERRIN MD Unavailable Unavailable ROBBIE, Belia PERRIN MD Unavailable Unavailable RBOBIE, Belia PERRIN MD Unavailable Unavailable ROBBIE, Belia [...] is protected by Article 27-F of the [facility] Public Health law. If you continue you may have access to information: Regarding HIV / AIDS; Provided by facilities licensed or operated by the [facility] Office of Mental Health; or Provided by the [facility] Office for People With Developmental Disabilities. If such information is present, then the following [facility] mandated warning applies: This information has [...] law may result in a fine or mcc sentence or both. A general authorization for the release of medical or other information is NOT sufficient authorization for further disc losure. Family History Family Member Name Family Member Gender Family Member Status Date o f Status Description Data Source(s) Unknown Unknown Problem [facility] ([facility]) Son - Jeromy, age 6 Unknown Unknown Problem [facility] father Unknown Male Problem [facility] ([facility]) Unknown Female Problem [facility] ([facility]) Unknown Female Problem [facility] ([facility] Encounters Encounter Providers Location Date Indications Data Source(s ) Outpatient Attender: JOE BLACK MDReferrer: Sara Darby MD 06/29/2021 12:20:58 PM EST [facility] Outpatient Attender: JOE GUEVARAeferrer: JOE BLACK MD 06/08/2021 11:55:05 AM EDT [facility] Recurring Patient Attender: MARYCHUY GUEVARAeferrer: Sara carballo MD 06/08/2021 10:18:58 AM EDT [facility] Outpatient Attender: ALEC Melendez 1 08:00:00 AM EDT [facility] ([facility] ) Outpatient Attender: JOE GUEVARAeferrer: Sara Darby MD 05/12/2021 06:43:09 PM EDT [facility] Recurring Patient Attender: MARYCHUY DEL RIOROD MDReferrer: Sara carballo MD 05/10/2021 02:15:03 PM EDT [facility] Recurring Patient Attender: MARYCHUY AVALOS MDReferrer: Sara carballo MD 05/02/2021 02:42:47 PM EDT [facility] Outpatient Attender: ALEC Melendez 0 04/19/2021 02:20:00 PM EDT [facility] ([facility] ) Outpatient Attender: ALEC Melendez 0 02/28/2021 08:00:00 AM EDT [facility] ([facility] ) Outpatient Attender: LAURA Cadena 12/21/2020 09:35:00 AM EDT [facility] ([facility]) Outpatient Attender: ALEC Melendez 1 10/08/2019 10:20:00 AM EST [facility] ([facility] ) Immunizations Vaccine Date Status Description Data Source(s) COVID-19 VACCINE Pfizer 06/28/2021 12:00:00 AM EST completed [facility] Vaccine Series Complete: YESThis Data wa s Submitted to [facility] Via [employer]. COVID-19 VACCINE Pfizer 06/07/2021 12:00:00 AM EDT completed [facility] Vaccine Series Complete: NOThis Data was Submitted to [facility] Via [employer]. Influenza, injectable, MDCK, preservative free, cathi valent 05/31/2021 07:58:00 AM EDT completed [facility]) Tdap 12/21/2020 10:09:00 AM EDT completed M EDENT ([facility]) Medications Medication Brand Name Start Date Product Form Dose Route Admi nistrative Instructions Pharmacy Instructions Status Indications Reaction Description Data Source(s) Prednisone 10 MG Oral Tablet Prednisone 04/19/2021 12:00:00 AM EDT ORAL completed [facility] ([facility]) Ibuprofen 800 MG Oral Tablet Ibuprofen 04/19/2021 12:00:00 AM EDT active [facility] ([facility]) Mupirocin 0.02 MG/MG Topical Ointment Mupirocin 12/21/2020 12:00:00 AM EDT active [facility] ([facility], [facility]) Amoxicillin 875 MG / Clavulanate 125 MG Oral Tablet Am oxicillin/Clavulanate Potassium 12/21/2020 12:00:00 AM EDT ORAL active [facility] ([facility]) Prednisone 10 MG Oral Tablet Prednisone 08/07/2020 12:00:00 AM EST ORAL active [facility] ([facility]) Insurance Providers Payer name Policy type / Coverage type Policy ID Covered alliance party ID Covered alliance party's relationship to garcia Policy Garcia Plan Information [facility] Workers Compensation [id number] Self [id number] [facility] Workers Compensation [id number] Self [id number] [facility]) Workers Compensation [id number] Self [id number] [facility]) Workers Compensation [id number] Self [id number] [facility]) Workers Compensation [id number] Self [id number] [facility]) Workers Compensation [id number] Self [id number] [facility]) Workers Compensation [id number] Self [id number] [employer] Workers Compensation [id number] Self [id number] [facility] Workers Compensation [id number] Self [id number] [facility] Workers Compensation [id number] Self [id number] [facility] Workers Compensation [id number] [id number] Self [id number] [facility] Workers Compensation [id number] [id number] Self [id number] [facility] Workers Compensation [id number] [id number] Self [id number] [facility] Maintenance Organization ([facility]) [id number] Self [id number] [facility] Maintenance Organization (O) [id number] Self [id number] [facility] Maintenance Organization (O) [id number] Self [id number] [facility] Maintenance Organization (O) [id number] Self [id number] [facility] Workers Compensation [id number] Self [id number] [facility] () Workers Compensation [id number] Self [employer] EMPIRE KRYSTLE DIV [id number] SP [id number] [employer] [id number] SP [id number] [employer] E[employer]IRE KRYSTLE DIV [id number] SP [id number] [employer] EMPIRE KRYSTLE DIV [id number] SP [id number] [facility] [employer] [id number] Self [id number] [employer] [facility] [employer] [id number] Self [employer] [facility] [employer] [id number] ...[id number] Self [id number] [employer] [facility] [employer] [id number] ..[id number] Self [id number] [employer] Plan F [id number] SELF [id number] [employer] [facility] [employer] [id number] ...[id number] Self [id number] [employer] [facility] [employer] [id number] ..[id number] Self [id number] [employer] [id number] ..[id number] Self [id number] [employer] [id number] ...[id number] Self [id number] [employer] [facility] [employer] [id number] ..[id number] Self [id number] [facility] [employer] [id number] Self [id number] [facility] [id number] SP [id number] [facility] [employer] Commercial [id number] Self [id number] STATE INSURANCE FUND [id number] SP [id number] STATE INSURANCE FUND O [id number] S [id number] BCBS EMPIRE KRYSLTE DIV [id number] [employer] O [id number] S [id number] [facility] [id number] [facility] Health Maintenance Organization (HMO) [id number] Self STATE INSURANCE FUND [id number] SP [id number] 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 -O/P [id number] 18 [id number] BCBS EMPIRE KRYSTLE DIV [id number] SP [id number] [facility] [employer] [id number] Self BCBS EMPIRE KRYSTLE DIV [id number] SP [id number] [facility]/[employer] Health Maintenance Organization (HMO) [id number] Self STATE INSURANCE FUND [id number] SP [id number] STATE INSURANCE FUND P [id number] S [id number] [employer] P [id number] S [id number] STATE INSURANCE FUND [id number] SP [id number] STATE INSURANCE FUND P UNAVAILABLE [id number] S UNAVAILABLE [facility] P [id number] S [id number] Problems, Conditions, and Diagnoses No Information Surgeries/Procedures Procedure Description Date Indications Data Source(s) OFFICE OUTPATIENT VISIT 10 MINUTES 05/31/2021 12:00:00 AM EDT [facility] ([facility]) OFFICE OUTPATIENT VISIT 15 MINUTES 04/19/2021 12:00:00 AM EDT [facility] ECG ROUTINE ECG W/LEAST 12 LDS W/I&R 02/28/2021 12:00: 00 AM EDT [facility] ([facility]) PERIODIC PREVENTIVE MED EST PATIENT 40-64YRS 12:00:00 AM EDT [facility] ([facility]) Results ID Date Data Source [id number] 06/29/2021 12:21:44 PM EST [facility] PC[facility]: Ronan CulverDOB: 1975Provider: Joe [...] pain began road octobering. Patient is a(n) [employer]. Patient is working at this time [...] is intermittent. Results/Data XRays previously taken at [facility] were reviewed today. Site: Lumbar Spine Views: [...] different treatment conservative options(observation, medication(s), physical therapy, ambulatory care coordinator, acupuncture, pain clinic, home exercise program, etc.)--- with pros and cons, potential risks/potential benefits of each option, as well as the chances of successes/failures of each option.At this time, they wish to proceed with:Continue ambulatory care coordinator This document was dictated and electronically signed using [employer] software. A reasonable attempt at proof reading has been made to minimize errors. Please call with any questions. Signatures Electronically signed by : Joe Black M.D.; Jun 29 2021 12:20PM EST (Author) Electronically signed by : Joe Black M.D.; Jun 29 2021 12:21PM EST (Author) Name Value Range Interpretation Code Description Data Mariana rce(s) Supporting Document(s) ID Date Data Source [id number] 06/29/2021 12:11:35 PM EST [facility] FINAL REPORTPatient Name: Greta Feng nPatient ID: [id number] Date: 1Exam Description: MRI L-SPINE W/O & [...] and borderline mild central canal stenosis.4. L5-S1 [id number] narrowing of the lateral recesses.Electronically signed by: Barron Mccormick Dictated: 06/29/2021 12:11Electronically Sign Name Value Range Interpretation Code Description Data Mairana rce(s) Supporting Document(s) ID Date Data Source [id number] 06/08/2021 11:55:05 AM EDT [facility] PC[facility]: Ronan CulverDOB: 1975Provider: Luigi [...] is intermittent. Results/Data XRays previously taken at [facility] were reviewed today. Site: Lumbar Spine Views: [...] different treatment conservative options(observation, medication(s), physical therapy, ambulatory care coordinator, acupuncture, pain clinic, home exercise program, etc.)--- [...] document was dictated and electronically signed using [employer] software. A reasonable attempt at proof reading has been made to minimize errors. Please call with any questions. Signatures Electronically signed by : Joe Black M.D.; Jun 08 2021 11:55AM EST (Author) Name Value Range Interpretation Code Description Data Mariana rce(s) Supporting Document(s) ID Date Data Source [id number] 06/08/2021 09:03:25 AM EDT [facility] FINAL REPORTPatient Name: Greta Feng nPatient ID: [id number] Date: 06/08/2021xam Description: MRI L-SPINE W/O CONTRASTReferring Physician: Joe Black EXAM: MRI Lumbar spine without contrastINDICATION: Low back pain COMPARISON: Lumbar spine x-ray dated 05/11/2021. TECHNIQUE: Multisequence multiplanar axial and sagittal MR imaging of the lumbosacral spine was performed on a 1.5T [employer] unit. Intravenous contrast was not administered.FINDINGS: For [...] rce(s) Supporting Document(s) ID Date Data Source [id number] 05/12/2021 06:43:09 PM EDT [facility]: Ronan CulverDOB: 1975Provider: Luigi Black: 05/11/2021 Reason For VisitSallison Culver is here today for L Spine. Patient denies any symptoms of or pending results for COVID 19 or contact with anyone with COVID 19. Ronan has not had the Covid vaccine. Ronna Culver is a new patient. L Spine [...] effective. NSAID Name: ibuprofen. 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 A reasonable attempt at proof reading has been made to minimize errors. Please call with any questions. Signatures Electronically signed by : Joe Black M.D.; May 12 2021 6:43PM EST (Author) Name Value Range Interpretation Code Description Data Mariana rce(s) Supporting Document(s) ID Date Data Source [id number] 02/28/2021 08:31:00 AM [facility] Name Value Range Interpretation Code Description Data Mariana rce(s) Supporting Document(s) Calcidiol [Mass/volume] in Serum or Plasma 38.1 ng/mL 24.0-80.0 [facility] This test was performed using [employer] I P Vitamin D immunoassay kit. Values obtained with different assay methods should not be used interchangeably. ID Date Data Source [id number] 02/28/2021 08:31:00 AM [facility] Name Value Range Interpretation Code Description Data Mariana rce(s) Supporting Document(s) Cholesterol in HDL [Mass/volume] in Serum or Plasma 50 mg/dL 35-60 [facility] ([facility]) Cholesterol [Mass/volume] in Serum or Plasma 238 mg/dL 131-200 [facility] ([facility]) Triglyceride [Mass/volume] in Serum or Plasma 169 mg/dL 30-150 [facility] ([facility]) Cholesterol in LDL [Mass/volume] in Serum or Plasma by calcu lation 154 CALC 50-159 [facility] ([facility]) ID Date Data Source [id number] 02/28/2021 08:31:00 AM EDT [facility] ([facility]) Name Value Range Interpretation Code Description Data Mariana rce(s) Supporting Document(s) Urea nitrogen [Mass/volume] in Serum or Plasma 14 mg/dL 7-18 [facility] ([facility]) Creatinine 1.2 mg/dL 0.6-1.3 [facility] ([facility] Glucose [Mass/volume] in Serum or Plasma 94 mg/dL 74-99 [facility] ([facility]) 100-125 mg/dL PRE-DIABETES/FASTING >126 mg/dL DIABETES/FASTING Chloride [Moles/volume] in Serum or Plasma 106 meq/L 98-107 [facility] ([facility]) Potassium [Moles/volume] in Serum or Plasma 4.8 meq/L 3.5-5.1 [facility] ([facility]) Sodium [Moles/volume] in Serum or Plasma 144 meq/L 136-145 [facility] ([facility]) Carbon dioxide, total [Moles/volume] in Serum or Plasma 27 meq/L 21 -32 [facility] ([facility]) Alkaline phosphatase isoenzyme [Units/volume] in Serum or Pl asma 76 mg/dL 46-116 [facility] ([facility]) Calcium [Mass/volume] in Serum or Plasma 10.0 mg/dL 8.5-10.1 [facility] ([facility]) Alanine aminotransferase [Enzymatic activity/volume] in Seru m or Plasma 52 U/L 12-78 [facility] ([facility]) Aspartate aminotransferase [Enzymatic activity/volume] in Serum or Plasma 24 U/L 15-37 [facility] ([facility] ) Total Bilirubin 0.6 mg/dL 0.2-1.0 [facility] ([facility]) Albumin [Mass/volume] in Serum or Plasma 3.9 g/dL 3.4-5.0 [facility] ([facility]) Proteinase 3 Ab [Units/volume] in Serum 7.4 g/dL 6.4-8.2 [facility] ([facility]) A/G Ratio 1.11 CALC 1.00-1.90 [facility]) Glomerular filtration rate/1.73 sq M pre dicted among non-blacks [Volume Rate/Area] in Serum or Plasma by Creatinine-based formula (MDRD) Laboratory test result [facility] ([facility] ) Glomerular filtration rate/1.73 sq M pre dicted among blacks [Volume Rate/Area] in Serum or Plasma by Creatinine-based formula (MDRD) Laboratory test result [facility] ([facility]) <content>CHRONIC KIDNEY DISEASE STAGING PER NKF</content>
<content></content>
<content>STAGE I & II GFR >= 60 NORMAL TO MILDLY DECREASED</content>
<content>STAGE III GFR 30-59 MODERATELY DECREASED</content>
<content>STAGE IV GFR 15-29 SEVERELY DECREASED</content>
<content>STAGE V GFR <15 VERY LITTLE GFR LEFT</content>
<content>ESRD GFR <15 ON CAPTAIN/CHECK AIRMAN</content>
<content></content> ID Date Data Source [id number] 02/28/2021 08:31:00 AM EDT [facility]) Name Value Range Interpretation Code Description Data Mariana rce(s) Supporting Document(s) Leukocytes [#/volume] in Blood by Automated count 6.2 x10*3/UL 4.1-10 .9 [facility] ([facility]) Hematocrit [Volume Fraction] of Blood by Automated count 44.2 % 3 7.0-51.0 [facility] ([facility]) Hemoglobin [Mass/volume] in Blood 14.9 g/dL 12.0-18.0 [facility] ([facility]) Erythrocytes [#/volume] in Blood by Automated count 5.14 x10*6/UL 4.2 0-6.30 [facility] ([facility]) MCV 86.0 fL 80.0-97.0 [facility] MCHC 33.9 g/dL 31.0-38.0 [facility] MCH 29.1 pg 26.0-32.0 [facility] Platelets [#/volume] in Blood by Automated count 414 x10*3/UL 140-440 [facility] ([facility]) MPV 7.4 FL 7.8-11.0 [facility] Erythrocyte distribution width [Ratio] by Automated count 12.9 % 11.6-13.7 [facility] ([facility]) Lymph % 26.9 % 10.0-58.5 [facility] Neut % 67.0 % 37.0-92.0 [facility] Mid % 6.1 % 1.7-9.3 [facility] Neut # 4.1 x10*3/UL 2.0-7.8 [facility] ([facility]) Lymph # 1.6 x10*3/UL 0.6-4.1 [facility] ([facility]) Mid # 0.5 x10*3/UL 0.1-0.6 [facility] ([facility]) ID Date Data Source [id number] 08/22/2020 12:00:00 AM EST [facility] Name Value Range Interpretation Code Description Data Mariana rce(s) Supporting Document(s) SARS-CoV2 Rapid Antigen Positive [facility] This lab was ordered by [facility] and reported by [facility]. ID Date Data Source [id number] 08/21/2020 12:30:00 PM EST [facility] Name Value Range Interpretation Code Description Data Mariana rce(s) Supporting Document(s) SARS coronavirus 2 RNA Detected [facility] This lab was ordered by [facility] and reported by [facility]. ID Date Data Source [id number] 08/16/2020 12:00:00 AM EST [facility] Name Value Range Interpretation Code Description Data Mariana rce(s) Supporting Document(s) SARS-CoV2 Rapid Antigen Negative [facility] This lab was ordered by [facility] and reported by [facility]. Procedure Social History No Information Vital Signs ID Date Data Source UNK Name Value Range Interpretation Code Description Data Source(s) Body height 70 [in_i] 70 [in_i] [facility] ([facility]) 5'10" Body weight 212.00 [lb_av] 212.00 [lb_av] [facility] ([facility]) Body mass index (BMI) [Ratio] 30.4 kg/m2 30.4 k g/m2 [facility] ([facility]) Systolic blood pressure 126 mm[Hg] 126 mm[Hg] [facility] ([facility]) Diastolic blood pressure 88 mm[Hg] 88 mm[Hg] [facility] ([facility]) Heart rate 88 /min 88 /min [facility] ([facility]) Diastolic blood pressure 92 mm[Hg] 92 mm[Hg] [facility] ([facility]) Heart rate 115 /min 115 /min [facility] ([facility]) Body height 70 [in_i] 70 [in_i] [facility] ([facility]) 5'10" Body mass index (BMI) [Ratio] 30.3 kg/m2 30.3 k g/m2 [facility] ([facility]) Oxygen saturation in Arterial blood by Pulse oximetry 97 % 97 % [facility] ([facility]) Body weight 211.00 [lb_av] 211.00 [lb_av] [facility] ([facility]) Systolic blood pressure 136 mm[Hg] 136 mm[Hg] [facility] ([facility]) Heart rate 102 /min 102 /min [facility] ([facility]) Body mass index (BMI) [Ratio] 30.0 kg/m2 30.0 k g/m2 [facility] ([facility]) Systolic blood pressure 128 mm[Hg] 128 mm[Hg] [facility] ([facility]) Body height 70 [in_i] 70 [in_i] [facility] ([facility]) 5'10" Body weight 209.00 [lb_av] 209.00 [lb_av] [facility] ([facility]) Oxygen saturation in Arterial blood by Pulse oximetry 98 % 98 % [facility] ([facility]) RM Air Systolic blood pressure 140 mm[Hg] 140 mm[Hg] [facility] Diastolic blood pressure 90 mm[Hg] 90 mm[Hg] [facility] ([facility]) Diastolic blood pressure 84 mm[Hg] 84 mm[Hg] [facility] ([facility]) Body height 71 [in_i] 71 [in_i] [facility] ([facility]) 5'11" Body mass index (BMI) [Ratio] 28.6 kg/m2 28.6 k g/m2 [facility] ([facility]) Systolic blood pressure 131 mm[Hg] 131 mm[Hg] [facility] ([facility], [facility]) Diastolic blood pressure 93 mm[Hg] 93 mm[Hg] [facility] ([facility], [facility]) Heart rate 94 /min 94 /min [facility] ([facility], [facility]) Respiratory rate 16 /min 16 /min [facility] ( [facility], [facility]) Oxygen saturation in Arterial blood by Pulse oximetry 97 % 97 % [facility] ([facility], [facility]) Body temperature 97.1 [degF] 97.1 [degF] [facility] ([facility], [facility]) Body weight 205.00 [lb_av] 205.00 [lb_av] [facility]) Systolic blood pressure 128 mm[Hg] 128 mm[Hg] [facility] RT Arm Diastolic blood pressure 94 mm[Hg] 94 mm[Hg] [facility] ([facility]) RT Arm Heart rate 80 /min 80 /min [facility] Body mass index (BMI) [Ratio] 30.0 kg/m2 30.0 k g/m2 [facility] ([facility]) Body height 70 [in_i] 70 [in_i] [facility] ([facility]) 5'10" Body weight 209.38 [lb_av] 209.38 [lb_av] [facility] ([facility])
--- NOTE | 2021-07-16 12:50 | REP ---
INDICATION: DYSPNEA/COUGH COMPARISON: 09/24/2016. TECHNIQUE: PA/Lateral FINDINGS: Lungs: Clear, no infiltrate. Heart: Normal in size. Mediastinum: Mediastinal silhouette unremarkable. Pleural angles: Unremarkable.. Bones and soft tissues: Unremarkable. IMPRESSION: No acute pulmonary disease. <Electronically signed by Rodney Oseguera > 07/16/21 [id number]
[2021-07-16 13:17] LABS: BASO # 0.1 10^3/uL (0.0-0.2); BASO % 1.1 % (0.0-1.0); EOS # 0.2 10^3/uL (0.0-0.5); HEMATOCRIT 46.6 % (42.0-52.0); HEMOGLOBIN 15.5 g/dl (13.5-17.5); LYMPH # 2.2 10^3/uL (1.5-5.0); MEAN CORPUSCULAR HEMOGLOBIN 29.6 pg (27.0-33.0); MEAN CORPUSCULAR HGB CONC 33.3 g/dl (32.0-36.5); MEAN CORPUSCULAR VOLUME 88.9 fl (80.0-96.0); MONO # 0.7 10^3/uL (0.0-0.8); MONO % 7.8 % (2.0-8.0); NEUTROPHILS # 6.3 10^3/uL (1.5-8.5); NEUTROPHILS % 65.8 % (36.0-66.0); PLATELET COUNT, AUTOMATED 450 10^3/uL (150-450); RED BLOOD COUNT 5.24 10^6/uL (4.30-6.10); WHITE BLOOD COUNT 9.5 10^3/uL (4.0-10.0)
[2021-07-16 13:29] LABS: INR 1.01; PROTHROMBIN TIME 13.7 SECONDS (12.7-14.5)
[2021-07-16 13:41] LABS: D-DIMER QUANT < 270 ng/ml (<500)
[2021-07-16 14:06] LABS: ALBUMIN 4.3 GM/DL (3.2-5.2); BILIRUBIN,DIRECT 0.2 MG/DL (0.0-0.2); BILIRUBIN,TOTAL 0.9 MG/DL (0.2-1.0); THYROID STIMULATING HORMONE 1.36 uIU/ML (0.358-3.740); THYROXINE (T4) 9.9 UG/DL (4.5-12.0)
[2021-07-16 14:29] VITALS: BP 138/92
--- NOTE | 2021-07-18 10:15 | ECGEPIP ---
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
== END 2021-07-16 14:30 | disposition home or self-care (01) ==
LOC: M ED 09:18
DX: B34.9 Viral infection, unspecified (principal); R06.02 Shortness of breath; I10 Essential (primary) hypertension; I25.2 Old myocardial infarction; Z88.6 Allergy status to analgesic agent

== ENCOUNTER → 2021-07-18 | Outpatient (CLI) | payer BC, OTHER ==
--- NOTE | 2021-07-18 12:16 | REP ---
INDICATION: SHORTNESS OF BREATH, COUGH COMPARISON: 07/16/2021. TECHNIQUE: PA/Lateral FINDINGS: Lungs: Clear, no infiltrate. Heart: Normal in size. Mediastinum: Mediastinal silhouette unremarkable. Pleural angles: Unremarkable.. Bones and soft tissues: Unremarkable. IMPRESSION: No acute pulmonary disease. <Electronically signed by Rodney Oseguera > 07/18/21 [id number]
[2021-07-18 12:53] LABS: BASO # 0.1 10^3/uL (0.0-0.2); BASO % 1.2 % (0.0-1.0); EOS # 0.3 10^3/uL (0.0-0.5); EOS % 4.2 % (0.0-3.0); HEMATOCRIT 45.6 % (42.0-52.0); HEMOGLOBIN 14.9 g/dl (13.5-17.5); LYMPH # 2.3 10^3/uL (1.5-5.0); LYMPH % 30.9 % (24.0-44.0); MEAN CORPUSCULAR HEMOGLOBIN 29.3 pg (27.0-33.0); MEAN CORPUSCULAR HGB CONC 32.7 g/dl (32.0-36.5); MEAN CORPUSCULAR VOLUME 89.8 fl (80.0-96.0); MONO # 0.6 10^3/uL (0.0-0.8); NEUTROPHILS # 4.1 10^3/uL (1.5-8.5); NEUTROPHILS % 55.4 % (36.0-66.0); PLATELET COUNT, AUTOMATED 448 10^3/uL (150-450); RED BLOOD COUNT 5.08 10^6/uL (4.30-6.10); WHITE BLOOD COUNT 7.4 10^3/uL (4.0-10.0)
[2021-07-18 13:21] LABS: BLOOD UREA NITROGEN 13 MG/DL (7-18); CALCIUM LEVEL 9.7 MG/DL (8.5-10.1); CARBON DIOXIDE LEVEL 29 MEQ/L (21-32); CHLORIDE LEVEL 107 MEQ/L (98-107); CREATININE FOR GFR 1.02 MG/DL (0.70-1.30); GLOMERULAR FILTRATION RATE > 60.0 (>60); GLUCOSE, FASTING 79 MG/DL (70-100); POTASSIUM SERUM 4.2 MEQ/L (3.5-5.1); SODIUM LEVEL 142 MEQ/L (136-145)
== END ==
LOC: M WUC 11:35
PROVIDERS: ATTEND Physician Assistant
DX: R06.02 Shortness of breath (principal); R05.9 Cough, unspecified

== ENCOUNTER → 2022-06-03 | Outpatient (CLI) | payer BC, OTHER | LOC: M SOG 14:50 | PROVIDERS: ATTEND Orthopaedic Surgery | DX: M25.532 Pain in left wrist (principal) ==

== ENCOUNTER → 2022-06-27 | Outpatient (CLI) | payer BC, OTHER | LOC: M LABSMTC 09:23 | PROVIDERS: ATTEND Pediatrics | DX: Z20.822 Contact with and (suspected) exposure to COVID-19 (principal) | CPT/HCPCS: 87635; C9803 ==

== ENCOUNTER 2022-12-15 09:05 | Emergency (ER) | payer OTHER, BC ==
[~2022-12-15] VITALS: Ht 180.3 cm; Wt 87.9 kg
[2022-12-15] MEDS ORDERED: BUPR1TAB52 (09:40)
[2022-12-15 12:13] VITALS: BP 131/67
== END 2022-12-15 12:14 | disposition home or self-care (01) ==
LOC: M ED 09:05
DX: S60.221A Contusion of right hand, initial encounter (principal); I10 Essential (primary) hypertension; E78.5 Hyperlipidemia, unspecified; F10.10 Alcohol abuse, uncomplicated; Z88.6 Allergy status to analgesic agent; Y99.0 Civilian activity done for income or pay; Z79.83 Long term (current) use of bisphosphonates; Z79.899 Other long term (current) drug therapy

== ENCOUNTER → 2022-12-18 | Outpatient (CLI) | payer OTHER, BC ==
[~2022-12-18] MED LIST changes: +BUPR1TAB52
== END ==
LOC: M SOG 07:54
PROVIDERS: ATTEND Orthopaedic Surgery
DX: G56.22 Lesion of ulnar nerve, left upper limb (principal); M25.522 Pain in left elbow

== ENCOUNTER → 2022-12-26 | Outpatient (CLI) | payer OTHER, BC | LOC: M SOG 08:07 | PROVIDERS: ATTEND Orthopaedic Surgery | DX: M25.521 Pain in right elbow (principal); M79.641 Pain in right hand; M77.8 Other enthesopathies, not elsewhere classified; M19.041 Primary osteoarthritis, right hand ==

== ENCOUNTER 2023-12-15 18:43 | Emergency (ER) | payer BC, OTHER ==
[~2023-12-15] VITALS: Ht 180.3 cm; Wt 95.2 kg
[2023-12-15 19:53] LABS: BASO # 0.1 10^3/uL (0.0-0.2); BASO % 1.2 % (0.0-1.0); EOS # 0.2 10^3/uL (0.0-0.5); EOS % 2.3 % (0.0-3.0); HEMATOCRIT 45.8 % (42.0-52.0); HEMOGLOBIN 15.6 g/dl (13.5-17.5); LYMPH # 1.6 10^3/uL (1.5-5.0); LYMPH % 16.2 % (24.0-44.0); MEAN CORPUSCULAR HEMOGLOBIN 30.3 pg (27.0-33.0); MEAN CORPUSCULAR HGB CONC 34.1 g/dl (32.0-36.5); MEAN CORPUSCULAR VOLUME 88.9 fl (80.0-96.0); MONO # 0.9 10^3/uL (0.0-0.8); MONO % 9.6 % (2.0-8.0); NEUTROPHILS # 6.9 10^3/uL (1.5-8.5); NEUTROPHILS % 70.3 % (36.0-66.0); PLATELET COUNT, AUTOMATED 398 10^3/uL (150-450); RED BLOOD COUNT 5.15 10^6/uL (4.30-6.10); WHITE BLOOD COUNT 9.8 10^3/uL (4.0-10.0)
[2023-12-15 20:14] LABS: LIPASE 35 U/L (12-53)
[2023-12-15 20:16] LABS: ALBUMIN 4.1 G/DL (3.2-5.2); ALKALINE PHOSPHATASE 83 U/L (46-116); ALT/SGPT 47 U/L (7.0-40); AST/SGOT 25 U/L (<34); BILIRUBIN,DIRECT 0.2 MG/DL (<0.4); BLOOD UREA NITROGEN 12 MG/DL (9-23); CALCIUM LEVEL 9.5 MG/DL (8.5-10.1); CARBON DIOXIDE LEVEL 26 MMOL/L (20-31); CHLORIDE LEVEL 105 MMOL/L (98-107); CREATININE FOR GFR 0.97 MG/DL (0.70-1.30); GLOMERULAR FILTRATION RATE > 60.0 (>60); GLUCOSE, FASTING 89 MG/DL (60-100); POTASSIUM SERUM 4.6 MMOL/L (3.5-5.1); SODIUM LEVEL 139 MMOL/L (136-145); TOTAL PROTEIN 7.7 G/DL (5.7-8.2)
[2023-12-15] MEDS: NS 1,000 ML IV ONE (20:27)
[2023-12-15] MEDS: ONDANSETRON 4MG 2ML VIAL IV ONE (20:27)
[2023-12-15] MEDS: MORPHINE 4 MG/ML 1ML VIAL IV ONE (20:28)
[2023-12-15 20:53] LABS: CK-MB VALUE MASS < 1.0 NG/ML (<3.6)
[2023-12-15 20:56] LABS: CPK CREATINE PHOSPHOKINASE 152 U/L (46-171); MB/CK RELATIVE INDEX 0.65 (< OR =4)
[2023-12-15 21:10] VITALS: BP 134/92; TEMP 97.1; O2SAT 97
== END 2023-12-15 22:05 | disposition home or self-care (01) ==
LOC: M ED 18:43
DX: K82.4 Cholesterolosis of gallbladder (principal); K76.0 Fatty (change of) liver, not elsewhere classified; R00.0 Tachycardia, unspecified; I10 Essential (primary) hypertension; I25.2 Old myocardial infarction; K21.9 Gastro-esophageal reflux disease without esophagitis; Z88.6 Allergy status to analgesic agent; Z86.79 Personal history of other diseases of the circulatory system; Z79.1 Long term (current) use of non-steroidal anti-inflammatories (NSAID); Z79.899 Other long term (current) drug therapy
CPT/HCPCS: 76705; 80048; 80076; 82550; 82553; 83690; 84484; 85025; 93005; 96361; 96374; 96375; 99284; J2405

== ENCOUNTER → 2024-01-26 | Outpatient (CLI) | payer BC | LOC: M RAD 08:08 | PROVIDERS: ATTEND Surgery | DX: R10.10 Upper abdominal pain, unspecified (principal) ==

== ENCOUNTER 2024-02-16 09:23 | Day surgery (SDC) | payer BC ==
[~2024-02-16] VITALS: Ht 180.3 cm; Wt 96.2 kg
[~2024-02-16 09:23] MED LIST changes: -AMLO2.5T3; +AMLO2.5T3 PO; +ATOR1TAB19 PO; -BUPR1TAB52; +BUPR1TAB52 PO; +SERT25TA21 PO; -VITA50005; +VITA50005 PO
[2024-02-16] MEDS ORDERED: LR 1,000 ML IV SCH ×2 (10:20→13:20)
[2024-02-16] MEDS ORDERED: propofoL 200 MG/20 ML VIAL As Ordered ONE (11:39)
[2024-02-16] MEDS ORDERED: METOCLOPRAMIDE INJ 10MG/2ML VIAL As Ordered ONE (11:39)
[2024-02-16] MEDS ORDERED: MIDAZOLAM INJ 2MG/2ML VIAL As Ordered ONE (11:39)
[2024-02-16] MEDS ORDERED: LIDOCAINE 2% 100MG/5ML SDV (FOR ANES.) As Ordered ONE (11:39)
[2024-02-16] MEDS ORDERED: fentaNYL 250 MCG/5 ML INJECTION As Ordered ONE (11:39)
[2024-02-16] MEDS ORDERED: ROCURONIUM BROMIDE 50MG/5ML VIAL As Ordered ONE (11:39)
[2024-02-16] MEDS ORDERED: dexmedeTOMIDine (4MCG/ML)200MCG/50ML BTL (PRECEDEX) As Ordered ONE (11:39)
[2024-02-16] MEDS ORDERED: ONDANSETRON 4MG 2ML VIAL As Ordered ONE (11:39)
[2024-02-16] MEDS ORDERED: HYDROmorphone HCL 2MG/ML 1ML VIAL As Ordered ONE (11:39)
[2024-02-16] MEDS ORDERED: SUGAMMADEX SODIUM 500 MG/5 ML VIAL (BRIDION) As Ordered ONE (11:39)
[2024-02-16] MEDS ORDERED: ACETAMINOPHEN 1000MG 100ML IV BAG As Ordered ONE (11:48)
[2024-02-16] MEDS ORDERED: ePHEDrine SULFATE 25 MG/5 ML(5MG/ML) SYRINGE As Ordered ONE (11:56)
[2024-02-16] MEDS ORDERED: KETOROLAC 60MG 2ML VIAL As Ordered ONE (12:52)
[2024-02-16] MEDS ORDERED: ALBUTEROL 6.7GM INHALER **FOR ANES. CART/OMNICELL ONLY As Ordered ONE (13:06)
[2024-02-16] MEDS ORDERED: fentaNYL 100 MCG/2 ML INJECTION IV PRN (13:20)
[2024-02-16] MEDS: HYDROMORPHONE HCL 0.5 MG/ 0.5 ML SYRINGE IV PRN (14:10)
[2024-02-16] MEDS: oxyCODONE 5MG TAB PO PRN (14:14)
[2024-02-16] MEDS: ONDANSETRON 4MG 2ML VIAL IV PRN (14:30)
[2024-02-16 15:25] VITALS: BP 133/85; TEMP 97.2; O2SAT 96
== END 2024-02-16 16:07 | disposition home or self-care (01) ==
LOC: M SDC 09:23
PROVIDERS: ATTEND Surgery
DX: K81.1 Chronic cholecystitis (principal); K42.0 Umbilical hernia with obstruction, without gangrene; I10 Essential (primary) hypertension; I25.2 Old myocardial infarction; K58.8 Other irritable bowel syndrome; Z79.899 Other long term (current) drug therapy
CPT/HCPCS: 47562; 49592; 88304; J0131; J0665; J1100; J1170; J1885; J2250; J2405; J2765; J3010; S2900

== ENCOUNTER 2025-04-10 15:11 | Emergency (ER) | payer BC ==
[~2025-04-10] VITALS: Ht 180.3 cm; Wt 97.3 kg
[~2025-04-10 15:11] MED LIST changes: +BUPR-670 PO; -BUPR1TAB52 PO
[2025-04-10 15:37] LABS: BASO # 0.1 10^3/uL (0.0-0.2); BASO % 1.2 % (0.0-1.0); EOS # 0.3 10^3/uL (0.0-0.5); EOS % 3.9 % (0.0-3.0); LYMPH # 2.2 10^3/uL (1.5-5.0); LYMPH % 29.8 % (24.0-44.0); MONO # 0.6 10^3/uL (0.0-0.8); MONO % 8.4 % (2.0-8.0); NEUTROPHILS # 4.1 10^3/uL (1.5-8.5); NEUTROPHILS % 56.3 % (36.0-66.0); PLATELET COUNT, AUTOMATED 353 10^3/uL (150-450)
[2025-04-10 16:23] LABS: ALT/SGPT 34 U/L (7.0-40); AST/SGOT 20 U/L (<34); CALCIUM LEVEL 9.0 MG/DL (8.5-10.1); CARBON DIOXIDE LEVEL 28 MMOL/L (20-31); CHLORIDE LEVEL 107 MMOL/L (98-107); CK-MB VALUE MASS 1.0 NG/ML (<3.6); CREATININE FOR GFR 1.04 MG/DL (0.70-1.30); GLOMERULAR FILTRATION RATE 88.0 (>60); POTASSIUM SERUM 4.1 MMOL/L (3.5-5.1); SODIUM LEVEL 144 MMOL/L (136-145)
[2025-04-10 16:26] LABS: CPK CREATINE PHOSPHOKINASE 83 U/L (46-171); MB/CK RELATIVE INDEX 1.20 (< OR =4)
[2025-04-10] MEDS ORDERED: ISOVUE-370 76% 100 ML VIAL As Ordered ONE (16:48)
[2025-04-10 18:45] VITALS: BP 136/85; TEMP 97.7; O2SAT 96
== END 2025-04-10 19:01 | disposition home or self-care (01) ==
LOC: EDBD 15:11 → M ED 15:11
DX: R07.9 Chest pain, unspecified (principal); D37.4 Neoplasm of uncertain behavior of colon; I45.81 Long QT syndrome; J98.11 Atelectasis; K76.0 Fatty (change of) liver, not elsewhere classified; I10 Essential (primary) hypertension; E78.5 Hyperlipidemia, unspecified; K21.9 Gastro-esophageal reflux disease without esophagitis; K58.9 Irritable bowel syndrome, unspecified; F41.9 Anxiety disorder, unspecified; F32.A Depression, unspecified; F10.10 Alcohol abuse, uncomplicated; Z88.8 Allergy status to other drugs, medicaments and biological substances; Z79.899 Other long term (current) drug therapy; Z79.02 Long term (current) use of antithrombotics/antiplatelets
CPT/HCPCS: 36415; 71045; 71275; 74177; 80048; 80076; 82550; 82553; 83690; 84484; 85025; 93005; 93041; 94760; 99285; Q9967

== ENCOUNTER 2025-06-01 09:29 | Day surgery (SDC) | payer BC ==
[~2025-06-01] VITALS: Ht 177.8 cm; Wt 95.3 kg
[~2025-06-01 09:29] MED LIST changes: +ERGO500029 PO
[2025-06-01] MEDS ORDERED: LIDOCAINE 2% 100 MG/5 ML SDV (FOR ANES.) As Ordered ONE (10:37)
[2025-06-01] MEDS ORDERED: METOPROLOL 5 MG/5 ML VIAL As Ordered ONE (10:37)
[2025-06-01 11:00] VITALS: BP 112/70; O2SAT 96
== END 2025-06-01 11:04 | disposition home or self-care (01) ==
LOC: M OPP 09:29
PROVIDERS: ATTEND Surgery
DX: R93.3 Abnormal findings on diagnostic imaging of other parts of digestive tract (principal); K64.0 First degree hemorrhoids; G47.30 Sleep apnea, unspecified; Z86.73 Personal history of transient ischemic attack (TIA), and cerebral infarction without residual deficits; Z88.8 Allergy status to other drugs, medicaments and biological substances; Z79.899 Other long term (current) drug therapy
CPT/HCPCS: 45378; J0616